=== PATIENT | male | born 1990 | race African-American/Black ===

== ENCOUNTER 2018-10-17 22:17 | Emergency (ER) | payer BC, OTHER ==
--- OUTSIDE RECORDS SUMMARY | 2018-10-17 22:19 | XMS REPORT | Clinical Summary ---
:1990 Author Organization [facility] Address [address] [place] [address] Care Team Providers Name Role Phone Alina Sahnnon MD Primary Care Provider Allergies No Known Allergies Medications Medication Sig Dispensed Refills Start Date End Date Status ibuprofen Take 800 mg 0 Active (ADVIL,MOTRIN) 800 MG by mouth tablet every 6 (six) hours as needed for mild pain. cyclobenzaprine Take 5 mg by 0 Active (FLEXERIL) 5 mg mouth 3 tablet (three) times a day as needed for muscle spasms. meloxicam (MOBIC) 15 TAKE 1 30 tablet 0 05/03/2018 Active mg tablet TABLET BY MOUTH EVERY DAY methocarbamol Take 1 90 tablet 0 04/06/2018 05/06/2018 (ROBAXIN) 750 MG tablet (750 tablet mg total) by mouth 4 (four) times a day for 30 days. meloxicam (MOBIC) 15 Take 1 30 tablet 0 04/06/2018 05/03/2018 Discontinued mg tablet tablet (15 mg total) by mouth daily. TENS unit and 1 Units once 1 each 0 04/25/2018 04/25/2018 electrodes combo for 1 dose. packIndications: Acute bilateral low back pain without sciatica Active Problems No known active problems Encounters Date Type Specialty Care Team Description 05/03/2018 Refill Internal Medicine Alina Shannon MD 04/25/2018 Office Visit Internal Medicine Alina Shannon Acute bilateral low MD [place] back pain without sciatica (Primary Dx) 04/06/2018 Lab Lab Alina Shannon Acute bilateral back MD [place] pain, unspecified back location 04/06/2018 Office Visit Internal Medicine Alina Shannon Acute bilateral back MD [place] pain, unspecified back location (Primary Dx) 04/05/2018 Telephone Family Medicine Elias Amaro LVN after 10/16/2017 Family History Medical History Relation Name Comments No Known Problems Father Cancer Maternal Aunt Hypertension Maternal Grandfather Diabetes Maternal Grandmother Hypertension Maternal Grandmother No Known Problems Mother doesn't talk to his parents much Cancer Paternal Uncle uncertain of types of cancer Stroke Paternal Uncle Relation Name Status Comments Father Alive Maternal Aunt Maternal Grandfather Maternal Grandmother Mother Alive Paternal Uncle Paternal Uncle Social History Tobacco Use Types Packs/Day Years Used Date Current Some Day Smoker Cigars 8 Smokeless Tobacco: Never Used Tobacco Cessation: Ready to Quit: No; Counseling Given: No Comments: 1-2 cigars/week Alcohol Use Drinks/Week oz/Week Comments No Sex Assigned at Date Recorded Not on file Job Start Date Occupation Industry Not on file Not on file Not on file Travel History Travel Start Travel End No recent travel history available. Last Filed Vital Signs Vital Sign Reading Time Taken Blood Pressure 129/82 04/25/2018 9:34 AM CDT Pulse 58 04/25/2018 9:34 AM CDT Temperature 36.6 C (97.9 F) 04/25/2018 9:34 AM CDT Respiratory Rate - - Oxygen Saturation 99% 04/25/2018 9:34 AM CDT Inhaled Oxygen Concentration - - Weight 89.4 kg (197 lb) 04/25/2018 9:34 AM CDT Height 185.4 cm (6' 1") 04/25/2018 9:34 AM CDT Body Mass Index 25.99 04/25/2018 9:34 AM CDT Plan of Treatment Health Maintenance Due Date Last Done Comments INFLUENZA VACCINE 03/29/2018 Procedures Procedure Name Priority Date/Time Associated Comments Diagnosis CBC WITH PLATELET AND Routine 04/06/2018 1:00 Acute bilateral Results for this DIFFERENTIAL PM CDT back pain, procedure are in unspecified back the results location section. COMPREHENSIVE Routine 04/06/2018 1:00 Acute bilateral Results for this METABOLIC PANEL PM CDT back pain, procedure are in unspecified back the results location section. after 10/16/2017 Results CBC with platelet and differential (04/06/2018 1:00 PM CDT) WBC 5.1 3.8 - 10.8 Thousand/uL [facility] [place] RBC 4.41 4.20 - 5.80 Million/uL [facility] [place] HGB 13.7 13.2 - 17.1 g/dL [facility] [place] HCT 41.0 38.5 - 50.0 % [facility] MCV 93.0 80.0 - 100.0 fL [facility] [place] MCH 31.1 27.0 - 33.0 pg [facility] [place] MCHC 33.4 32.0 - 36.0 g/dL [facility] [place] RDW 11.8 11.0 - 15.0 % [facility] [place] Platelet count 258 140 - 400 Thousand/uL [facility] [place] MPV 10.9 7.5 - 12.5 fL [facility] [place] Neutrophils, absolute 2,739 1,500 - 7,800 cells/uL [facility] [place] Lymphocytes, absolute 1,505 850 - 3,900 cells/uL [facility] [place] Monocytes, absolute 643 200 - 950 cells/uL [facility] [place] Eosinophils, absolute 153 15 - 500 cells/uL [facility] [place] Basophils, absolute 61 0 - 200 cells/uL [facility] [place] Neutrophils 53.7 % [facility] [place] Lymphocytes 29.5 % [facility] [place] Monocytes 12.6 % [facility] [place] Eosinophils 3.0 % [facility] [place] Basophils + RC 1.2 % [facility] [place] Specimen Blood Narrative Performed At FASTING: UNKNOWN [facility] Comment Performing Organization Information: Site ID: [id number] Name: [facility] Address: [address] [place] [id number] Director: Dionna Humphrey Performing Organization Address City/State/Zipcode Phone Number [employer] [place] [phone] Comprehensive metabolic panel (04/06/2018 1:00 PM CDT) Glucose 80 65 - 99 mg/dL [facility] Comment: [place] Fasting reference interval BUN, whole blood 13 7 - 25 mg/dL [facility] [place] Creatinine 1.02 0.60 - 1.35 mg/dL [facility] [place] EGFR Non-Afr. Egyptian 100 > OR=60 [facility] mL/min/1.73m2 [place] EGFR 115 > OR=60 [facility] mL/min/1.73m2 [place] BUN/creatinine ratio NOT APPLICABLE 6 - 22 (calc) [facility] [place] Sodium 140 135 - 146 mmol/L [facility] [place] Potassium 4.2 3.5 - 5.3 mmol/L [facility] [place] Chloride 104 98 - 110 mmol/L [facility] [place] CO2 31 20 - 32 mmol/L [facility] [place] Calcium 9.5 8.6 - 10.3 mg/dL [facility] [place] Protein 6.9 6.1 - 8.1 g/dL [facility] [place] Albumin, S 4.5 3.6 - 5.1 g/dL [facility] [place] Globulin, total 2.4 1.9 - 3.7 g/dL [facility] (calc) [place] Albumin/globulin ratio 1.9 1.0 - 2.5 (calc) [facility] [place] Total bilirubin 1.5 (H) 0.2 - 1.2 mg/dL [facility] [place] Alkaline phosphatase 59 40 - 115 U/L [facility] [place] AST 14 10 - 40 U/L [facility] [place] ALT 9 9 - 46 U/L [facility] [place] Specimen Blood Narrative Performed At FASTING: UNKNOWN [facility] Comment Performing Organization Information: Site ID: [id number] Name: [facility] Address: [address] [place] [id number] Director: Dionna Humphrey Performing Organization Address [facility] Phone Number [facility] [place] [address] [place], [place] [phone] after 10/16/2017 Insurance Payer Benefit Plan / Group Subscriber ID Type Phone Address BCBS BCBS CHOICE PPO/FEDERAL EMPL PPO xxxxxxxxxxxx PPO [facility] [address] (Home) [address] [place] [phone] Advance Directives Patient has advance care planning documents on file. For more information, please contact:[place] [address]
--- OUTSIDE RECORDS SUMMARY | 2018-10-17 22:19 | XMS REPORT ---
:1990 Author Organization [facility] Address [address] [place] [address] [address] [place] [address] Care Team Providers Name Role Phone Unavailable Unavailable Unavailable Problems This patient has no known problems. Allergies, Adverse Reactions, Alerts This patient has no known allergies or adverse reactions. Medications This patient has no known medications.
--- NOTE | 2018-10-17 23:34 | ER ---
Nurse's Notes [facility] Name: Alina Noyola Age: 27 yrs Sex: Male : 1990 Arrival Date: 10/17/2018 Time: 22:18 Bed 13 Private MD: Diagnosis: Radiculopathy, lumbar region;Low back pain Presentation: 10/17 22:33 Presenting complaint: Patient states: Was cleaning the pull and felt my back started ao hurting. Patient reports pain 6/10 in lower back. Transition of care: patient was not received from another setting of care. Onset of symptoms was October 17, 2018 at 12:00. Risk Assessment: Do you want to hurt yourself or someone else? Patient reports no desire to harm self or others. Initial Sepsis Screen: Does the patient meet any 2 criteria? No. Patient's initial sepsis screen is negative. Does the patient have a suspected source of infection? No. Patient's initial sepsis screen is negative. Care prior to arrival: None. 22:33 Method Of Arrival: Ambulatory ao 22:33 Acuity: KEKE 3 ao Historical: - Allergies: 22:35 No Known Allergies; ao - Home Meds: 22:35 unknown antibiotic [Active]; ao - PMHx: 22:35 ear infection; ao - PSHx: 22:35 None; ao - Immunization history:: Adult Immunizations up to date. - Social history:: Smoking status: Patient uses tobacco products, denies chronic smoking, but will smoke occasionally, Patient uses alcohol, occasionally. Patient/guardian denies using. - Ebola Screening: : Patient negative for fever greater than or equal to 101.5 degrees Fahrenheit, and additional compatible Ebola Virus Disease symptoms Patient denies exposure to infectious person Patient denies travel to an Ebola-affected area in the 21 days before illness onset. Screenin:37 Abuse screen: Denies threats or abuse. Denies injuries from another. Nutritional ao screening: No deficits noted. Tuberculosis screening: No symptoms or risk factors identified. Fall Risk None identified. Assessment: 22:37 General: Appears in no apparent distress. comfortable, Behavior is calm, cooperative, ao appropriate for age. Pain: Complains of pain in low back area Pain does not radiate. Pain currently is 6 out of 10 on a pain scale. Neuro: Level of Consciousness is awake, alert, obeys commands, Oriented to person, place, time, situation, Appropriate for age Moves all extremities. Full function Speech is normal, Facial symmetry appears normal. Cardiovascular: Capillary refill < 3 seconds Patient's skin is warm and dry. Respiratory: Airway is patent Respiratory effort is even, unlabored, Respiratory pattern is regular, symmetrical, Breath sounds are clear bilaterally. GI: Abdomen is flat. : No signs and/or symptoms were reported regarding the genitourinary system. EENT: No deficits noted. No signs and/or symptoms were reported regarding the EENT system. Derm: Skin is intact, Skin is pink, warm \T\ dry. normal, Skin temperature is warm. Musculoskeletal: Reports pain in low back area. 23:31 Reassessment: Patient appears in no apparent distress at this time. Patient and/or ao family updated on plan of care and expected duration. Pain level reassessed. Patient is alert, oriented x 3, equal unlabored respirations, skin warm/dry/pink. Flexeril and Toradol gievn. 23:40 Reassessment: DC held until flu results. ao 10/18 00:39 Reassessment: Dc given to patient. Patient agree with POC and to follow up with PCP. No ao questions at this time. Vital Signs: 10/17 22:36 BP 122 / 84; Pulse 62; Resp 16; Temp 100.0(O); Pulse Ox 96% on R/A; Weight 88.45 kg ao (M); Height 5 ft. 1 in. (154.94 cm) (M); Pain 6/10; 23:31 BP 120 / 81; Pulse 60; Resp 16; Pulse Ox 99% on R/A; ao 22:36 Body Mass Index 36.84 (88.45 kg, 154.94 cm) ao ED Course: 22:18 Patient arrived in ED. es 22:32 Prem Kim, RN is Primary Nurse. ao 22:34 Triage completed. ao 22:37 Arm band placed on right wrist. Patient placed in an exam room, on a stretcher, on ao pulse oximetry, Patient notified of wait time. 22:37 Patient has correct armband on for positive identification. Pulse ox on. NIBP on. ao 22:57 Sandy Goodson FNP-C is PHCP. snw 22:57 Vincenzo Dailey MD is Attending Physician. snw 10/18 00:15 Flu Sent. ao 00:40 No provider procedures requiring assistance completed. Patient did not have IV access ao during this emergency room visit. Administered Medications: 10/17 23:29 Drug: TORadol 60 mg Route: IM; Site: right gluteus; ao 23:53 Follow up: Response: No adverse reaction ao 23:29 Drug: Flexeril 10 mg Route: PO; ao 23:53 Follow up: Response: No adverse reaction ao Outcome: 23:33 Discharge ordered by . snw 10/18 00:40 Discharged to home ambulatory. ao Condition: stable Discharge instructions given to patient, Instructed on discharge instructions, follow up and referral plans. Demonstrated understanding of instructions, follow-up care, medications, Prescriptions given X 2. 00:40 Patient left the ED. ao Signatures: Sandy Goodson, SOLDER LEVELER PR[employer]ED CIRCUIT BOARDS-C SOLDER LEVELER [employer] BOARDS-Csnw Alva Lynne Alex, RN RN ao Corrections: (The following items were deleted from the chart) 00:39 00:38 Reassessment: DC held until flu results ao ao
--- NOTE | 2018-10-17 23:34 | EDPHYS ---
Physician Documentation [facility] Name: Alina Noyola Age: 27 yrs Sex: Male : 1990 Arrival Date: 10/17/2018 Time: 22:18 Bed 13 Private MD: ED Physician Vincenzo Dailey HPI: 10/18 00:09 This 27 yrs old Black Male presents to ER via Ambulatory with complaints of Low Back snw Pain. 00:09 The patient presents with pain that is acute. The symptoms are located in the left low snw back. Location: left lateral hip. The problem was sustained when lifting heavy object. Onset: The symptoms/episode began/occurred suddenly, this morning. Associated signs and symptoms: The patient has no apparent associated signs or symptoms. Severity of symptoms: At their worst the symptoms were moderate. The patient has not experienced similar symptoms in the past. It is unknown whether or not the patient has recently seen a physician. Historical: - Allergies: 10/17 22:35 No Known Allergies; ao - Home Meds: 22:35 unknown antibiotic [Active]; ao - PMHx: 22:35 ear infection; ao - PSHx: 22:35 None; ao - Immunization history:: Adult Immunizations up to date. - Social history:: Smoking status: Patient uses tobacco products, denies chronic smoking, but will smoke occasionally, Patient uses alcohol, occasionally. Patient/guardian denies using. - Ebola Screening: : Patient negative for fever greater than or equal to 101.5 degrees Fahrenheit, and additional compatible Ebola Virus Disease symptoms Patient denies exposure to infectious person Patient denies travel to an Ebola-affected area in the 21 days before illness onset. ROS: 10/18 00:07 Constitutional: Negative for fever, chills, and weight loss, Eyes: Negative for injury, snw pain, redness, and discharge, ENT: Negative for injury, pain, and discharge, Neck: Negative for injury, pain, and swelling, Cardiovascular: Negative for chest pain, palpitations, and edema, Respiratory: Negative for shortness of breath, cough, wheezing, and pleuritic chest pain, Abdomen/GI: Negative for abdominal pain, nausea, vomiting, diarrhea, and constipation, : Negative for injury, bleeding, discharge, and swelling, MS/Extremity: Negative for injury and deformity, Skin: Negative for injury, rash, and discoloration, Neuro: Negative for headache, weakness, numbness, tingling, and seizure. Back: Positive for injury or acute deformity, pain with movement, radiated pain. Exam: 00:07 Constitutional: This is a well developed, well nourished patient who is awake, alert, snw and in no acute distress. Head/Face: Normocephalic, atraumatic. Eyes: Pupils equal round and reactive to light, extra-ocular motions intact. Lids and lashes normal. Conjunctiva and sclera are non-icteric and not injected. Cornea within normal limits. Periorbital areas with no swelling, redness, or edema. ENT: Nares patent. No nasal discharge, no septal abnormalities noted. Tympanic membranes are normal and external auditory canals are clear. Oropharynx with no redness, swelling, or masses, exudates, or evidence of obstruction, uvula midline. Mucous membranes moist. Neck: Trachea midline, no thyromegaly or masses palpated, and no cervical lymphadenopathy. Supple, full range of motion without nuchal rigidity, or vertebral point tenderness. No Meningismus. Chest/axilla: Normal chest wall appearance and motion. Nontender with no deformity. No lesions are appreciated. Cardiovascular: Regular rate and rhythm with a normal S1 and S2. No gallops, murmurs, or rubs. Normal PMI, no JVD. No pulse deficits. Respiratory: Lungs have equal breath sounds bilaterally, clear to auscultation and percussion. No rales, rhonchi or wheezes noted. No increased work of breathing, no retractions or nasal flaring. Abdomen/GI: Soft, non-tender, with normal bowel sounds. No distension or tympany. No guarding or rebound. No evidence of tenderness throughout. Skin: Warm, dry with normal turgor. Normal color with no rashes, no lesions, and no evidence of cellulitis. MS/ Extremity: Pulses equal, no cyanosis. Neurovascular intact. Full, normal range of motion. Neuro: Awake and alert, GCS 15, oriented to person, place, time, and situation. Cranial nerves II-XII grossly intact. Motor strength 5/5 in all extremities. Sensory grossly intact. Cerebellar exam normal. Normal gait. Psych: Awake, alert, with orientation to person, place and time. Behavior, mood, and affect are within normal limits. 00:07 Back: pain, that is moderate, of the left low back, radiates to left lateral hip. Vital Signs: 10/17 22:36 BP 122 / 84; Pulse 62; Resp 16; Temp 100.0(O); Pulse Ox 96% on R/A; Weight 88.45 kg ao (M); Height 5 ft. 1 in. (154.94 cm) (M); Pain 6/10; 23:31 BP 120 / 81; Pulse 60; Resp 16; Pulse Ox 99% on R/A; ao 22:36 Body Mass Index 36.84 (88.45 kg, 154.94 cm) ao MDM: 23:14 Patient medically screened. snw 10/18 00:09 Data reviewed: vital signs, nurses notes. Data interpreted: Pulse oximetry: on room air snw is 99 %. Interpretation: normal. Counseling: I had a detailed discussion with the patient and/or guardian regarding: the historical points, exam findings, and any diagnostic results supporting the discharge/admit diagnosis, the presence of at least one elevated blood pressure reading (>120/80) during this emergency department visit, the need for outpatient follow up, to return to the emergency department if symptoms worsen or persist or if there are any questions or concerns that arise at home. Special discussion: I have referred the patient to see his PCP for further evaluation of high blood pressure. Based on the history and exam findings, there is no indication for further emergent testing or inpatient evaluation. I discussed with the patient/guardian the need to see the primary care provider for further evaluation of the symptoms. 10/17 23:19 Order name: Flu; Complete Time: 00:33 snw Administered Medications: 10/17 23:29 Drug: TORadol 60 mg Route: IM; Site: right gluteus; ao 23:53 Follow up: Response: No adverse reaction ao 23:29 Drug: Flexeril 10 mg Route: PO; ao 23:53 Follow up: Response: No adverse reaction ao Disposition: 10/18 01:10 Co-signature as Attending Physician, Vincenzo Dailey MD. rn Disposition: 10/17/18 23:33 Discharged to Home. Impression: Radiculopathy, lumbar region, Low back pain. - Condition is Stable. - Discharge Instructions: Back Pain, Adult, Lumbosacral Radiculopathy, Musculoskeletal Pain, Back Injury Prevention, [id number]-pc-[id number], Back Exercises, Fusn-hk-[id number], Cryotherapy, Rehydration, Adult, Heat Therapy. - Prescriptions for Diclofenac Sodium 75 mg Oral Tablet Sustained Release - take 1 tablet by ORAL route 2 times per day; 30 tablet. orphenadrine citrate 100 mg Oral Tablet Sustained Release - take 1 tablet by ORAL route 2 times per day As needed; 20 tablet. - Work release form, Medication Reconciliation Form, Thank You Letter, Antibiotic Education, Prescription Opioid Use form. - Follow up: Private Physician; When: 2 - 3 days; Reason: Recheck today's complaints, Continuance of care, Re-evaluation by your physician. Follow up: Emergency Department; When: As needed; Reason: Worsening of condition. Signatures: Dispatcher [employer] EDMS Sandy Goodson, KEERTHI-C POLICY CHANGE CLERKS SUPERVISOR-Csnw Vincenzo Dailey MD MD rn Ortiz, Alex, RN RN ao Corrections: (The following items were deleted from the chart) 00:40 10/17 23:33 10/17/2018 23:33 Discharged to Home. Impression: Radiculopathy, lumbar ao region; Low back pain. Condition is Stable. Discharge Instructions: Back Pain, Adult, Lumbosacral Radiculopathy, Musculoskeletal Pain, Back Injury Prevention, Lgzp-[id number], Back Exercises, Sjcf-lx-[id number], Cryotherapy, Rehydration, Adult, Heat Therapy. Prescriptions for Diclofenac Sodium 75 mg Oral Tablet Sustained Release - take 1 tablet by ORAL route 2 times per day; 30 tablet, orphenadrine citrate 100 mg Oral Tablet Sustained Release - take 1 tablet by ORAL route 2 times per day As needed; 20 tablet. and Forms are Work release form, Medication Reconciliation Form, Thank You Letter, Antibiotic Education, Prescription Opioid Use. Follow up: Private Physician; When: 2 - 3 days; Reason: Recheck today's complaints, Continuance of care, Re-evaluation by your physician. Follow up: Emergency Department; When: As needed; Reason: Worsening of condition. snw
[2018-10-17] MEDS ORDERED: CYCLOBENZAPRINE 10 MG TAB ONE (23:35)
[2018-10-17] MEDS ORDERED: KETOROLAC 30 MG/ML INJ ONE (23:35)
== END 2018-10-18 00:40 | disposition home or self-care (01) ==
LOC: ER 22:17
DX: M54.16 Radiculopathy, lumbar region (principal)
CPT/HCPCS: 87804; 96372; 99284

== ENCOUNTER 2019-09-04 20:51 | Emergency (ER) | payer BC, OTHER ==
--- OUTSIDE RECORDS SUMMARY | 2019-09-04 20:53 | XMS REPORT ---
:1990 [facility] Address [address] [place] [address] [address] [place] [address] Care Team Providers Name Role Phone Unavailable Unavailable Unavailable Problems This patient has no known problems. Allergies, Adverse Reactions, Alerts This patient has no known allergies or adverse reactions. Medications This patient has no known medications.
--- NOTE | 2019-09-04 22:22 | ER ---
Nurse's Notes [facility] Name: Alina Noyola Age: 28 yrs Sex: Male : 1990 Arrival Date: 09/04/2019 Time: 20:53 Bed 28 Private MD: Diagnosis: Strain of muscle and tendon of front wall of thorax Presentation: 09/04 21:06 Presenting complaint: Patient states: Left sided chest pain that began this morning at work, works for [employer], reports the pain is worsened by moving, stretching and leaning forward, denies Dizziness, Weakness, no n/v/d/fever at this time. Transition of care: patient was not received from another setting of care. Onset of symptoms was September 04, 2019. Risk Assessment: Do you want to hurt yourself or someone else? Patient reports no desire to harm self or others. Initial Sepsis Screen: Does the patient meet any 2 criteria? No. Patient's initial sepsis screen is negative. Does the patient have a suspected source of infection? No. Patient's initial sepsis screen is negative. Care prior to arrival: None. 21:06 Method Of Arrival: Ambulatory 21:06 Acuity: KEKE 4 sg Historical: - Allergies: 20:58 No Known Allergies; sg - PMHx: 20:58 ear infection; sg - PSHx: 20:58 None; sg - Immunization history:: Adult Immunizations up to date. - Social history:: Smoking status: Patient/guardian denies using tobacco. - Ebola Screening: : No symptoms or risks identified at this time. Screenin:05 Abuse screen: Denies threats or abuse. Denies injuries from another. Nutritional rv screening: No deficits noted. Tuberculosis screening: No symptoms or risk factors identified. Fall Risk None identified. Assessment: 22:05 General: Appears in no apparent distress. Pain: Complains of pain in chest Pain does rv not radiate. Pain: Pain began suddenly. Neuro: Level of Consciousness is awake, alert, obeys commands, Oriented to person, place, time, situation. Cardiovascular: Rhythm is regular. Respiratory: Airway is patent. Vital Signs: 20:58 BP 135 / 64; Pulse 76; Resp 16; Temp 98.7; Pulse Ox 100% on R/A; Weight 93.44 kg; sg Height 6 ft. 1 in. (185.42 cm); Pain 6/10; 22:21 BP 132 / 60; Pulse 77; Resp 16; Temp 98.7; Pulse Ox 100% on R/A; Pain 3/10; sg 20:58 Body Mass Index 27.18 (93.44 kg, 185.42 cm) ED Course: 20:53 Patient arrived in ED. ag3 21:07 Triage completed. sg 21:07 EKG done, by ED staff, reviewed by Vincenzo Dailey MD. sg 21:18 Bernice Caro FNP-C is PHCP. kb 21:18 Vincenzo Dailey MD is Attending Physician. kb 21:38 Aj Millan, RN is Primary Nurse. rv 21:45 Chest Pa And Lat (2 Views) XRAY In Process Unspecified. EDMS 21:50 X-ray(s) taken. jp3 22:06 No provider procedures requiring assistance completed. Patient did not have IV access rv during this emergency room visit. Patient maintains SpO2 saturation greater than 95% on room air. 22:06 Arm band placed on right wrist. rv 22:06 Patient has correct armband on for positive identification. hall monitor on. Pulse rv ox on. NIBP on. Administered Medications: No medications were administered Outcome: 22:20 Discharged to home ambulatory, with family. sg 22:20 Condition: good 22:20 Discharge instructions given to patient, Instructed on discharge instructions, follow up and referral plans. medication usage, safety practices, Demonstrated understanding of instructions, follow-up care, medications, Prescriptions given X 2. 22:21 Discharge ordered by MD. kb 22:27 Patient left the ED. ar5 Signatures: Dispatcher [employer] EDAK Bernice Caro FNP-C FNP-Ckb Gay, Steven, RN RN Aj Millan, RN RN rv Nacho Barksdale jp3 Yasmin Brink ag3 Grace Peter ar5
--- NOTE | 2019-09-04 22:22 | EDPHYS ---
Physician Documentation [facility] Name: Alina Noyola Age: 28 yrs Sex: Male : 1990 Arrival Date: 09/04/2019 Time: 20:53 Bed 28 Private MD: ED Physician Vincenzo Dailey HPI: 09/04 22:18 This 28 yrs old Black Male presents to ER via Ambulatory with complaints of Chest Pain. kb 22:18 The patient or guardian reports chest pain that is located primarily in the anterior kb chest wall, left. The pain does not radiate. Associated signs and symptoms: The patient has no apparent associated signs or symptoms. The chest pain is described as aching. Duration: The patient or guardian reports a single episode, that is still ongoing. Modifying factors: The symptoms are alleviated by remaining still, the symptoms are aggravated by breathing, deep breath, movement, palpation of area. Severity of pain: At its worst the pain was moderate in the emergency department the pain is unchanged. The patient has not experienced similar symptoms in the past. The patient has not recently seen a physician. Pt reports he started having pain to left chest this morning while at work. Reports he does a lot of repetitive work, but didn't lift anything heavier than normal today. Reports pain with breathing, touching muscle, moving left arm and stretching. . Historical: - Allergies: 20:58 No Known Allergies; sg - PMHx: 20:58 ear infection; sg - PSHx: 20:58 None; sg - Immunization history:: Adult Immunizations up to date. - Social history:: Smoking status: Patient/guardian denies using tobacco. - Ebola Screening: : No symptoms or risks identified at this time. ROS: 22:17 Constitutional: Negative for fever, chills, and weight loss, ENT: Negative for injury, kb pain, and discharge, Neck: Negative for injury, pain, and swelling, Respiratory: Negative for shortness of breath, cough, wheezing, and pleuritic chest pain, Abdomen/GI: Negative for abdominal pain, nausea, vomiting, diarrhea, and constipation, Back: Negative for injury and pain, : Negative for injury, bleeding, discharge, and swelling, MS/Extremity: Negative for injury and deformity, Skin: Negative for injury, rash, and discoloration, Neuro: Negative for headache, weakness, numbness, tingling, and seizure. 22:17 Cardiovascular: Positive for chest pain, with movement, of the left breast and anterior aspect of left upper chest. Exam: 21:43 ECG was reviewed by the Attending Physician. kb 22:16 Constitutional: This is a well developed, well nourished patient who is awake, alert, kb and in no acute distress. Head/Face: Normocephalic, atraumatic. Neck: Trachea midline, no thyromegaly or masses palpated, and no cervical lymphadenopathy. Supple, full range of motion without nuchal rigidity, or vertebral point tenderness. No Meningismus. Cardiovascular: Regular rate and rhythm with a normal S1 and S2. No gallops, murmurs, or rubs. Normal PMI, no JVD. No pulse deficits. Respiratory: Lungs have equal breath sounds bilaterally, clear to auscultation and percussion. No rales, rhonchi or wheezes noted. No increased work of breathing, no retractions or nasal flaring. Abdomen/GI: Soft, non-tender, with normal bowel sounds. No distension or tympany. No guarding or rebound. No evidence of tenderness throughout. Back: No spinal tenderness. No costovertebral tenderness. Full range of motion. Skin: Warm, dry with normal turgor. Normal color with no rashes, no lesions, and no evidence of cellulitis. MS/ Extremity: Pulses equal, no cyanosis. Neurovascular intact. Full, normal range of motion. Neuro: Awake and alert, GCS 15, oriented to person, place, time, and situation. Cranial nerves II-XII grossly intact. Motor strength 5/5 in all extremities. Sensory grossly intact. Cerebellar exam normal. Normal gait. 22:16 Chest/axilla: Inspection: normal, Palpation: tenderness, that is moderate, of the anterior aspect of left upper chest and left breast, that totally reproduces the patient's complaints. Vital Signs: 20:58 BP 135 / 64; Pulse 76; Resp 16; Temp 98.7; Pulse Ox 100% on R/A; Weight 93.44 kg; sg Height 6 ft. 1 in. (185.42 cm); Pain 6/10; 22:21 BP 132 / 60; Pulse 77; Resp 16; Temp 98.7; Pulse Ox 100% on R/A; Pain 3/10; sg 20:58 Body Mass Index 27.18 (93.44 kg, 185.42 cm) sg MDM: 21:38 Patient medically screened. kb 21:44 Data reviewed: vital signs, nurses notes. Data interpreted: Pulse oximetry: on room air kb is 100 %. Interpretation: normal. 22:16 Counseling: I had a detailed discussion with the patient and/or guardian regarding: the kb historical points, exam findings, and any diagnostic results supporting the discharge/admit diagnosis, radiology results, the need for outpatient follow up, a family practitioner, to return to the emergency department if symptoms worsen or persist or if there are any questions or concerns that arise at home. 09/04 21:18 Order name: Chest Pa And Lat (2 Views) XRAY kb 09/04 21:18 Order name: EKG; Complete Time: 21:18 kb 09/04 21:18 Order name: EKG - Nurse/Tech; Complete Time: 21:39 kb EC:43 Rate is 69 beats/min. Rhythm is regular. Right axis deviation noted. MS interval is kb normal at 182 msec. QRS interval is normal at 102 msec. QT interval is normal at 372 msec. Administered Medications: No medications were administered Disposition: 09/05 00:13 Co-signature as Attending Physician, Vincenzo Dailey MD. rn Disposition: 09/04/19 22:21 Discharged to Home. Impression: Strain of muscle and tendon of front wall of thorax. - Condition is Stable. - Discharge Instructions: Chest Wall Pain, [id number]-hk-[id number], Muscle Strain, [id number]. - Prescriptions for Diclofenac Sodium 75 mg Oral Tablet, Delayed Release (E.C.) - take 1 tablet by ORAL route 2 times per day As needed; 30 tablet. orphenadrine citrate 100 mg Oral Tablet Sustained Release - take 1 tablet by ORAL route 2 times per day As needed; 20 tablet. - Medication Reconciliation Form, Thank You Letter, Antibiotic Education, Prescription Opioid Use, Work release form form. - Follow up: Emergency Department; When: As needed; Reason: Worsening of condition. Follow up: Private Physician; When: 2 - 3 days; Reason: Recheck today's complaints, Continuance of care, Re-evaluation by your physician. Signatures: Dispatcher [employer] Bernice Au, ROTARY KILN OPERATOR-C ROTARY KILN OPERATOR-Ckb Esteves, EDWARD Burgos RN, Roman, MD MD rn Vicente, Ronaldo, RN RN rv Robles, Autumn ar5 Corrections: (The following items were deleted from the chart) 09/04 22:27 22:21 09/04/2019 22:21 Discharged to Home. Impression: Strain of muscle and tendon of ar5 front wall of thorax. Condition is Stable. Forms are Medication Reconciliation Form, Thank You Letter, Antibiotic Education, Prescription Opioid Use. Follow up: Emergency Department; When: As needed; Reason: Worsening of condition. Follow up: Private Physician; When: 2 - 3 days; Reason: Recheck today's complaints, Continuance of care, Re-evaluation by your physician. kb
[2019-09-04 22:42] VITALS: BP 135/64; TEMP 98.7; O2SAT 100
--- NOTE | 2019-09-04 22:53 | RAD REPORT ---
EXAM DESCRIPTION: RAD - Chest Pa And Lat (2 Views) - 09/04/2019 9:49 pm CLINICAL HISTORY: CHEST PAIN Chest pain. COMPARISON: CHEST PA AND LAT 2 VIEW dated 10/21/2015 FINDINGS: The lungs are clear. The heart is normal in size. No displaced fractures. IMPRESSION: No acute or concerning finding suspected.
--- NOTE | 2019-09-05 14:40 | EKG ---
Test Date: 2019-09-04 Test Time: 21:06:42 Finish Rolls Operator: SWG MEASUREMENT RESULTS: Intervals: Rate: 69 MD: 182 QRSD: 102 QT: 372 QTc: 398 [place]: P: 56 MD: 182 QRS: 90 T: 21 INTERPRETIVE STATEMENTS: Normal sinus rhythm Rightward axis Borderline ECG Compared to ECG 10/21/2015 19:06:04 Right-axis deviation now present Sinus bradycardia no longer present First degree AV block no longer present Electronically Signed On 09-05-19 14:38:40 USER EXPERIENCE TEAM LEAD by Roger Bardales
== END 2019-09-04 22:27 | disposition home or self-care (01) ==
LOC: ER 20:51
DX: S29.011A Strain of muscle and tendon of front wall of thorax, initial encounter (principal); X58.XXXA Exposure to other specified factors, initial encounter; Y99.0 Civilian activity done for income or pay
CPT/HCPCS: 71046; 93005; 99285

== ENCOUNTER 2021-02-20 22:11 | Emergency (ER) | payer BC ==
--- OUTSIDE RECORDS SUMMARY | 2021-02-20 22:14 | XMS REPORT | Continuity of Care Document ---
:1990 Author Organization Formerly [facility] t Address [address] [place] [address] Care Team Providers Name Role Phone Mirtha AVILA, Everett Primary Care Physician Orlin RN, M Attending Clinician Unavailable Only, Test Attending Clinician Unavailable Problems This patient has no known problems. Allergies, Adverse Reactions, Alerts This patient has no known allergies or adverse reactions. Family History Family Member Diagnosis Comments Start Date Stop Date Source Natural father No Known Problems [place] Maternal aunt Cancer [facility] Maternal grandfather Hypertension [place] [facility] Maternal grandmother Diabetes [place] [facility] Maternal grandmother Hypertension [place] [facility] Natural mother No Known Problems Nico Darling Paternal uncle Cancer [facility] Paternal uncle Stroke [facility] Social History Social Habit Start Date Stop Date Quantity Comments Source History of Cigar Smoker [facility] tobacco use Tobacco use and 2018-04-25 2018-04-25 Never used [facility] exposure 00:00:00 00:00:00 Alcohol intake 2018-04-25 2018-04-25 Current [facility] 00:00:00 00:00:00 non-drinker of alcohol (finding) Tobacco Comment 2016-06-11 2016-06-11 1-2 cigars/week [place] 00:00:00 00:00:00 Sex [birth year] At [birth year] [place] 00:00:00 00:00:00 Smoking Status Start Date Stop Date Source Current some day smoker 2018-04-25 00:00:00 [place] [facility] Medications Ordered Filled Start Stop Current Ordering Indication Dosage Frequency Signature Comments Components Source Medication Medication Date Date Medication? Clinician (SIG) Name Name meloxicam Yes TAKE 1 [place] (MOBIC) 15 9-05 TABLET BY [facility] mg tablet 00:00: MOUTH st 00 EVERY DAY ibuprofen Yes 800mg Q6H Take 800 [place] st[place] (ADVIL,MOTR 8-28 mg by Method[facility] IN) 800 MG 09:34: mouth st tablet 45 every 6 (six) hours as needed for mild pain. cyclobenzap Yes 5mg [id number] Take 5 mg Del rine 8-28 [id number] by mouth 3 [facility] (FLEXERIL) 09:34: 3D (three) st 5 mg tablet 45 times a day as needed for muscle spasms. Procedures This patient has no known procedures. Plan of Care Planned Activity Planned Date Details Comments Source Future Scheduled 2021-03-29 INFLUENZA VACCINE [place] [facility] Test 00:00:00 [code = INFLUENZA VACCINE] Future Scheduled 2007-11-08 Hepatitis C [facility] Test 00:00:00 screening (procedure) [code = 051473501] Future Scheduled 2001 COVID-19 VACCINE (1) [place] [facility] Test 00:00:00 [code = COVID-19 VACCINE (1)] Encounters Start End Encounter Admission Attending Care Care Encounter Source Date/Time Date/Time Type Type Clinicians Facility Department ID 2020-07-20 2020-07-20 Telephone OrlinAJ [id number] 00:00:00 00:00:00 [facility] [id number] [facility] [id number] 2020-07-17 2020-07-17 Laboratory Only, Web [facility] [id number] 10:05:15 10:20:15 Only Test Health [id number] Specialty [id number] [place] [id number] [place] [address] Results This patient has no known results.
--- NOTE | 2021-02-21 00:26 | EDPHYS ---
Physician Documentation [facility] Name: Alina Noyola Age: 30 yrs Sex: Male : 1990 Arrival Date: 02/20/2021 Time: 22:15 Bed 25 Private MD: ED Physician Michael Muir HPI: 02/21 00:04 This 30 yrs old Black Male presents to ER via Ambulatory with complaints of Low Back jmm Pain. 00:04 The patient presents with pain that is acute. Onset: The symptoms/episode jmm began/occurred acutely. Modifying factors: The patient symptoms are alleviated by specific position, the patient symptoms are aggravated by any movement. Associated signs and symptoms: Pertinent negatives: abdominal pain, chest pain, constipation, dysuria, fever, hematuria, incontinence, nausea, numbness, tingling, urinary retention, vomiting, weakness. 00:05 This is a 30 year old male with no chronic medical conditions that presents to the ED jmm with complaints of lower back pain beginning yesterday while performing heavy lifting. Pain worsened last night. . Historical: - Allergies: 02/20 22:47 No Known Allergies; ca1 - Home Meds: 22:47 None [Active]; ca1 - PMHx: 22:47 ear infection; ca1 - PSHx: 22:47 wrist surgery; ca1 - Immunization history:: Client reports having NOT received the Covid vaccine. Flu vaccine is not up to date. - Social history:: Smoking status: Patient reports the use of cigarette tobacco products, denies chronic smoking, but will smoke occasionally. ROS: 02/21 00:05 Constitutional: Negative for fever, chills, and weight loss, Cardiovascular: Negative jmm for chest pain, palpitations, and edema, Respiratory: Negative for shortness of breath, cough, wheezing, and pleuritic chest pain. Back: Positive for pain with movement. All other systems are negative. Exam: 00:05 Constitutional: This is a well developed, well nourished patient who is awake, alert, jmm and in no acute distress. Head/Face: atraumatic. Eyes: EOMI, no conjunctival erythema appreciated ENT: Moist Mucus Membranes Neck: Trachea midline, Supple Chest/axilla: Normal chest wall appearance and motion. Cardiovascular: Regular rate and rhythm. No edema appreciated Respiratory: Normal respirations, no respiratory distress appreciated Abdomen/GI: Non distended, soft 00:05 Skin: General appearance color normal MS/ Extremity: Moves all extremities, no obvious deformities appreciated, no edema noted to the lower extremities Neuro: Awake and alert, normal gait Psych: Behavior is normal, Mood is normal, Patient is cooperative and pleasant 00:05 Back: ROM is painful, muscle spasm, is appreciated in the left low back. Vital Signs: 02/20 22:42 BP 148 / 84; Pulse 55; Resp 17 S; Temp 97.6; Pulse Ox 97% on R/A; Weight 95.25 kg (R); ca1 Height 6 ft. 1 in. (185.42 cm) (R); Pain 8/10; 22:42 Body Mass Index 27.71 (95.25 kg, 185.42 cm) ca1 MDM: 02/21 00:04 Patient medically screened. [facility] 00:25 Data reviewed: vital signs, nurses notes. Counseling: I had a detailed discussion with kezia the patient and/or guardian regarding: the historical points, exam findings, and any diagnostic results supporting the discharge/admit diagnosis, radiology results, the need for outpatient follow up, to return to the emergency department if symptoms worsen or persist or if there are any questions or concerns that arise at home. ED course: Patient si alert and non toxic in appearance in the ED. PE consistent with muscle spasm. Advised to follow up with pcp and otherwise given strict return precautions. patient understood and agrees with the plan of care. . Administered Medications: 00:30 Drug: Ketorolac 30 mg Route: IM; Site: left deltoid; em 01:01 Follow up: Response: No adverse reaction; Marked relief of symptoms; Pain is decreased em 00:30 Drug: Decadron (dexamethasone) 10 mg Route: IM; Site: right deltoid; em 01:01 Follow up: Response: No adverse reaction; Marked relief of symptoms; Pain is decreased em Disposition: 06:42 Co-signature as Attending Physician, Michael Muir MD. [email or web address] Disposition: 02/21/21 00:26 Discharged to Home. Impression: Muscle spasm of back. - Condition is Stable. - Discharge Instructions: Muscle Cramps and Spasms. - Prescriptions for Ibuprofen 800 mg Oral Tablet - take 1 tablet by ORAL route every 12 hours As needed take with food; 20 tablet. Zanaflex 4 mg Oral Tablet - take 1 tablet by ORAL route every 8 hours As needed; 20 tablet. - Medication Reconciliation Form, Thank You Letter, Antibiotic Education, Prescription Opioid Use form. - Follow up: Private Physician; When: 2 - 3 days; Reason: Recheck today's complaints, Continuance of care, Re-evaluation by your physician. Signatures: Marino Roe PA PA jmm Munoz, Edgar, RN RN Katarzyna Tellez RN RN [facility] Michael Muir MD MD 7 Corrections: (The following items were deleted from the chart) 01:01 00:26 02/21/2021 00:26 Discharged to Home. Impression: Muscle spasm of back. Condition em is Stable. Forms are Medication Reconciliation Form, Thank You Letter, Antibiotic Education, Prescription Opioid Use. Follow up: Private Physician; When: 2 - 3 days; Reason: Recheck today's complaints, Continuance of care, Re-evaluation by your physician. kezia
--- NOTE | 2021-02-21 00:26 | ER ---
Nurse's Notes [facility] [place] Name: Alina Noyola Age: 30 yrs Sex: Male : 1990 Arrival Date: 02/20/2021 Time: 22:15 Bed 25 Private MD: Diagnosis: Muscle spasm of back Presentation: 02/20 22:42 Chief complaint: Patient states: Low back pain since yesterday. Denies recent injury. ca1 Denies urinary symptoms. Reports been lifting heavy at work. Coronavirus screen: Client denies travel out of the [place] in the last 14 days. At this time, the client does not indicate any symptoms associated with coronavirus-19. Ebola Screen: Patient negative for fever greater than or equal to 101.5 degrees Fahrenheit, and additional compatible Ebola Virus Disease symptoms Patient denies exposure to infectious person. Patient denies travel to an Ebola-affected area in the 21 days before illness onset. No symptoms or risks identified at this time. Initial Sepsis Screen: Does the patient meet any 2 criteria? No. Patient's initial sepsis screen is negative. Does the patient have a suspected source of infection? No. Patient's initial sepsis screen is negative. Risk Assessment: Do you want to hurt yourself or someone else? Patient reports no desire to harm self or others. Onset of symptoms was February 20, 2021. 22:42 Method Of Arrival: Ambulatory ca1 22:42 Acuity: KEKE 4 ca1 Historical: - Allergies: 22:47 No Known Allergies; ca1 - Home Meds: 22:47 None [Active]; ca1 - PMHx: 22:47 ear infection; ca1 - PSHx: 22:47 wrist surgery; ca1 - Immunization history:: Client reports having NOT received the Covid vaccine. Flu vaccine is not up to date. - Social history:: Smoking status: Patient reports the use of cigarette tobacco products, denies chronic smoking, but will smoke occasionally. Screenin/26 00:30 Abuse screen: Denies threats or abuse. Nutritional screening: No deficits noted. em Tuberculosis screening: No symptoms or risk factors identified. Fall Risk None identified. Assessment: 00:30 General: Appears in no apparent distress. comfortable. Pain: Complains of pain in left em low back Pain does not radiate. Pain currently is 8 out of 10 on a pain scale. Neuro: Level of Consciousness is awake, alert, obeys commands, Oriented to person, place, time, situation. Cardiovascular: Capillary refill < 3 seconds Patient's skin is warm and dry. Respiratory: Airway is patent Respiratory effort is even, unlabored, Respiratory pattern is regular, symmetrical. GI: Patient currently denies nausea, vomiting. Derm: Skin is intact, is healthy with good turgor, Skin is pink, warm \T\ dry. Musculoskeletal: Capillary refill < 3 seconds, Range of motion: intact in all extremities. 00:55 Reassessment: Patient appears in no apparent distress at this time. Patient and/or em family updated on plan of care and expected duration. Pain level reassessed. Patient is alert, oriented x 3, equal unlabored respirations, skin warm/dry/pink. rates pain 4/10 Patient states feeling better. Vital Signs: 02/20 22:42 BP 148 / 84; Pulse 55; Resp 17 S; Temp 97.6; Pulse Ox 97% on R/A; Weight 95.25 kg (R); ca1 Height 6 ft. 1 in. (185.42 cm) (R); Pain 8/10; 22:42 Body Mass Index 27.71 (95.25 kg, 185.42 cm) ca1 ED Course: 22:15 Patient arrived in ED. bp1 22:46 Triage completed. ca1 22:47 Arm band placed on right wrist. ca1 23:49 Pacheco Jj, RN is Primary Nurse. em 23:50 Marino Roe PA is PHCP. [facility] 23:50 Michael Muir MD is Attending Physician. [facility] 02/21 00:30 Patient has correct armband on for positive identification. em 02:19 No provider procedures requiring assistance completed. Patient did not have IV access em during this emergency room visit. Administered Medications: 00:30 Drug: Ketorolac 30 mg Route: IM; Site: left deltoid; em 01:01 Follow up: Response: No adverse reaction; Marked relief of symptoms; Pain is decreased em 00:30 Drug: Decadron (dexamethasone) 10 mg Route: IM; Site: right deltoid; em 01:01 Follow up: Response: No adverse reaction; Marked relief of symptoms; Pain is decreased em Outcome: : Discharge ordered by . [facility] 01:00 Discharged to home ambulatory. em 01:00 Condition: improved 01:00 Discharge instructions given to patient, Instructed on discharge instructions, follow up and referral plans. medication usage, Demonstrated understanding of instructions, follow-up care, medications, Prescriptions given X 2. 01:01 Patient left the ED. em Signatures: Marino Roe PA PA jmm Munoz, Edgar, RN RN em Acob, Cheryl, RN RN [facility] Gina Crawley [facility]
[2021-02-21] MEDS ORDERED: KETOROLAC 30 MG/ML INJ ONE (00:41)
[2021-02-21] MEDS ORDERED: dexAMETHasone 10 MG/ML VIAL ONE (00:41)
[2021-02-21 01:24] VITALS: BP 148/84; TEMP 97.6; O2SAT 97
== END 2021-02-21 01:01 | disposition home or self-care (01) ==
LOC: ER 22:11
DX: M62.830 Muscle spasm of back (principal); F17.210 Nicotine dependence, cigarettes, uncomplicated
CPT/HCPCS: 96372; 99283; J1100

== ENCOUNTER 2022-05-15 22:13 | Emergency (ER) | payer BC ==
--- OUTSIDE RECORDS SUMMARY | 2022-05-15 22:16 | XMS REPORT | Continuity of Care Document ---
:1990 Author Organization [facility] t Address [address] [place] [address] Care Team Providers Name Role Phone Mirtha AVILA, Alina Floyd Primary Care Physician [phone] Amy Lam Attending Clinician Doctor Unassigned, Swartz Attending Clinician Unavailable Orlin LEON, Ijeoma Muro Attending Clinician Unavailable Only, Web Test Attending Clinician Unavailable Fernando Schmitz MD Attending Clinician Payers Payer Name Policy Type Policy Number Effective Date Expiration Date [employer] [id number] 2018 00:00:00 Problems Condition Condition Condition Status Onset Resolution Last Treating Co mments Source Name Details Category Date Date Treatment Clinician Date No known No known Disease Metho di active active st problems problems Hospit a l Allergies, Adverse Reactions, Alerts Allergy Allergy Status Severity Reaction(s) Onset Inactive Treating Comm ents Source Name Type Date Date Clinician NO KNOWN Drug Active Univers ALLERGIE Class ity of S [facility] Family History Family Member Diagnosis Comments Start Date Stop Date Source Natural father No Known Problems [facility] Maternal aunt Cancer [facility] Maternal grandfather Hypertension [facility] Maternal grandmother Diabetes Meth [facility] Maternal grandmother Hypertension [facility] Natural mother No Known Problems Met [facility] Paternal uncle Cancer [facility] Paternal uncle Stroke [facility] Social History Social Habit Start Date Stop Date Quantity Comments Source Exposure to Not sure University SARS-CoV-2 [facility] (event) Branch History of Occasional tobacco Method ist tobacco use smoker Hospital Alcohol intake 2018-04-25 2018-04-25 Current [facility] 00:00:00 00:00:00 non-drinker of Hospital alcohol (finding) Tobacco use and 2016-06-11 2016-06-11 [facility]00 non-user Hospital Tobacco Comment 2016-06-11 2016-06-11 1-2 cigars/week Meth odist 00:00:00 00:00:00 Hospital Sex Assigned At [birth year] [facility] 00:00:00 00:00:00 Hospital Smoking Status Start Date Stop Date Source Unknown if ever smoked [facility] Occasional tobacco smoker 2016-06-11 00:00:00 [facility] Medications Ordered Filled Start Stop Current Ordering Indication Dosage Frequency Signature Comments Components Source Medication Medication Date Date Medication? Clinician (SIG) Name Name HYDROcodone 2020- No 1{tbl} 1 tablet, Univers -acetaminop 02-26 Oral, ONCE i ty of hen (NORCO) 01:30: 00:47 NOW, 1 Luis as 10-325 mg 00 :00 dose, Wed Medic al tablet 1 02/25/21 at [facility] h tablet 2029, Routine dexamethaso 2020- No 10mg 10 mg, Uni vers ne 02-26 Intramuscu ity of (DECADRON 01:30: 00:46 lar, ONCE, [place] PHOSPHATE) 00 :00 1 dose, Medica l injection Wed Branch 10 mg 02/25/21 at 2030, STAT ketorolac 2020- No 60mg 60 mg, Unive rs (TORADOL) 02-26 Intramuscu ity of injection 01:30: 00:46 lar, ONCE, [place] 60 mg 00 :00 1 dose, Medical Wed Branch 02/25/21 at 2030, JOSE
Fa culty member approving Restricted medication : EMERGENCY ROOM, predniSONE 2020- No [id number] 40mg Take 2 Univers 20 mg 02-26 tablets by ity of tablet 00:00: 04:59 mouth [place] 00 :00 daily for Medical 5 days. Branch methocarbam Yes [id number] 750mg Take 1 Univers oL 750 mg 6-30 tablet by ity o f tablet 00:00: mouth 4 [place] 00 (four) Medical times Branch daily as needed for Other (muscle spasm). acetaminoph 2020- No [id number] 1{tbl} Take 1 U nivers en-codeine 6-30 - tablet by ity of 300-30 mg 00:00: 04:59 mouth [place] tablet 00 :00 every 6 Medical (six) Branch hours as needed for Pain (scale 7-10) for up to 7 days. Indication s: acute pain fluticasone 2018-08 Yes [id number] 2{spray Use 2 Univers propionate 0-01 } Sprays in ity of (FLONASE 00:00: each [place] ALLERGY 00 nostril Medical RELIEF) 50 daily. Branch mcg/actuati on nasal spray fluticasone 2018-08 Yes [id number] 2{spray Use 2 Univers propionate 0-01 } Sprays in ity of (FLONASE 00:00: each [place] ALLERGY 00 nostril Medical RELIEF) 50 daily. Branch mcg/actuati on nasal spray fluticasone 2018-08 Yes [id number] 2{spray Use 2 Univers propionate 0-01 } Sprays in ity of (FLONASE 00:00: each [place] ALLERGY 00 nostril Medical RELIEF) 50 daily. Branch mcg/actuati on nasal spray fluticasone 2018-08 Yes [id number] 2{spray Use 2 Univers propionate 0-01 } Sprays in ity of (FLONASE 00:00: each [place] ALLERGY 00 nostril Medical RELIEF) 50 daily. Branch mcg/actuati on nasal spray mupirocin 2017-08 Yes Apply to [facility] ers (BACTROBAN) 2-29 affected ity of 2 % cream 00:00: area(s) 3 Luis as 00 (three) Medical times Branch daily. traMADOL 2017-08 Yes 50mg Take 1 Univers (ULTRAM) 50 2-29 tablet by ity of mg tablet 00:00: mouth [place] 00 every 6 Medical (six) Branch hours as needed for Pain (scale 4-6). mupirocin 2017- Yes Apply to [facility] ers (BACTROBAN) 2 affected ity of 2 % cream 00:00: area(s) 3 Luis as 00 (three) Medical times Branch daily. traMADOL 2017- Yes 50mg Take 1 Univers (ULTRAM) 50 2-29 tablet by ity of mg tablet 00:00: mouth [place] 00 every 6 Medical (six) Branch hours as needed for Pain (scale 4-6). mupirocin 2017- Yes Apply to [facility] ers (BACTROBAN) 2 affected ity of 2 % cream 00:00: area(s) 3 Luis as 00 (three) Medical times Branch daily. traMADOL 2017- Yes 50mg Take 1 Univers (ULTRAM) 50 2-29 tablet by ity of mg tablet 00:00: mouth [place] 00 every 6 Medical (six) Branch hours as needed for Pain (scale 4-6). mupirocin 2017- Yes Apply to [facility] (BACTROBAN) affected ity of 2 % cream 00:00: area(s) 3 Luis as 00 (three) Medical times Branch daily. traMADOL 2017- Yes 50mg Take 1 Univers (ULTRAM) 50 2-29 tablet by ity of mg tablet 00:00: mouth [place] 00 every 6 Medical (six) Branch hours as needed for Pain (scale 4-6). meloxicam Yes TAKE 1 Method i (MOBIC) 15 9-[address] mg tablet 00:00: MOUTH Hospita 00 EVERY DAY l ibuprofen 2017- Yes 800mg Q6H Take 800 Met hodi (ADVIL,MOTR 8-[address] IN) 800 MG 09:34: mouth Hospit a tablet 45 every 6 l (six) hours as needed for mild pain. cyclobenzap 2017- Yes 5mg Q.[id number] Take 5 mg Methodi rine 8-[id number] mouth [address] (FLEXERIL) 09:34: 3D (three) Hosp ewelina 5 mg tablet 45 times a l day as needed for muscle spasms. erythromyci 2018- Yes .5[in_u Place 0.5 Univers n 5 mg/gram 4-14 s] Inches in ity of (0.5 %) 00:00: left eye [place] ophthalmic 00 at Medical ointment bedtime. Branch Dextran Yes 1[drp] Place 1 Unive rs 70-Hypromel 4-14 Drop in ity o f lose, PF, 00:00: [place] (NATURAL 00 every 4 Medical TEARS) (four) Branch 0.1-0.3 % hours as ophthalmic needed for drops Itching. erythromyci Yes .5[in_u Place 0.5 Univers n 5 mg/gram 4-14 s] Inches in ity of (0.5 %) 00:00: left eye [place] ophthalmic 00 at Medical ointment bedtime. Branch Dextran Yes 1[drp] Place 1 Unive rs 70-Hypromel 4-14 Drop in ity o f lose, PF, 00:00: [place] (NATURAL 00 every 4 Medical TEARS) (four) Branch 0.1-0.3 % hours as ophthalmic needed for drops Itching. erythromyci Yes .5[in_u Place 0.5 Univers n 5 mg/gram 4-14 s] Inches in ity of (0.5 %) 00:00: left eye [place] ophthalmic 00 at Medical ointment bedtime. Branch Dextran Yes 1[drp] Place 1 Unive rs 70-Hypromel 4-14 Drop in ity o f lose, PF, 00:00: each [place] (NATURAL 00 every 4 Medical TEARS) (four) Branch 0.1-0.3 % hours as ophthalmic needed for drops Itching. erythromyci Yes .5[in_u Place 0.5 Univers n 5 mg/gram 4-14 s] Inches in ity of (0.5 %) 00:00: left eye [place] ophthalmic 00 at Medical ointment bedtime. Branch Dextran Yes 1[drp] Place 1 Unive rs 70-Hypromel 4-14 Drop in ity o f lose, PF, 00:00: each [place] (NATURAL 00 every 4 Medical TEARS) (four) Branch 0.1-0.3 % hours as ophthalmic needed for drops Itching. Vital Signs Vital Name Observation Time Observation Value Comments Source Systolic blood 2021-02-26 02:16:40 123 mm[Hg] Univer sity of [facility] Diastolic blood 2021-02-26 02:16:40 75 mm[Hg] [facility] rsity [facility] Heart rate 2021-02-26 02:16:40 59 /min [facility] Respiratory rate 2021-02-26 02:16:40 17 /min [facility] Oxygen saturation in 2021-02-26 02:16:40 98 /min [facility] Arterial blood by [facility] Pulse oximetry Branch Body temperature 2021-02-25 23:32:33 36.94 Reina [facility] Body height 2021-02-25 23:30:00 185.4 cm [facility] Body weight 2021-02-25 23:30:00 97.523 kg [facility] BMI 2021-02-25 23:30:00 28.37 kg/m2 [facility] Procedures Procedure Date / Time Performed Performing Clinician Sour e URINALYSIS 2021-02-26 00:50:[address] [facility] XR LUMBAR SPINE 3 VW 2021-02-26 00:38:30 Amy Hillman [facility] NOTICE OF PRIVACY 2021-02-25 23:05:59 Doctor Unassigned, No Univ [facility] PRACTICES Name [facility] CONSENT/REFUSAL FOR 2021-02-25 23:05:39 Doctor Unassigned, [facility] AND Name [facility] TREATMENT Plan of Care Planned Activity Planned Date Details Comments Source Future Scheduled 2022-04-29 [facility] 07:10:34 VACCINES (1 of 3 - 3-dose series) [code = HEPATITIS B VACCINES (1 of 3 - 3-dose series)] Future Scheduled 2022-04-29 [facility] 07:10:34 (#1) [code = COVID-19 VACCINE (#1)] Future Scheduled 2022-04-29 INFLUENZA VACCINE Method [facility] Hospital Test 07:10:34 [code = INFLUENZA VACCINE] Encounters Start End Encounter Admission Attending Care Care Encounter Source Date/Time Date/Time Type Type Clinicians Facility Department ID 2021-02-25 2021-02-25 Emergency Hillman, [facility] [id number] Univers 19:12:00 21:20:00 Amy Bundy [id number] i ty of [place] [facility]7.2.686 [facility] [id number] [place] [id number] Branch 2021-02-25 2021-02-25 Emergency X [facility] ERT [id number] Univers 18:07:00 18:07:[address] [facility] 2021-02-25 2021-02-25 Orders Doctor AJ [id number] Univers 00:00:00 00:00:00 Only Unassigned, DAINA [id number] ity of [place] [facility] 4.2.7.2.686 Luis as [id number] [facility] 009 Branch 2020-07-20 2020-07-20 Telephone AJ Ordaz [id number] 00:00:00 00:00:00 Ijeoma M DAINA [id number] [facility] 4.2.7.2.686 [id number] [facility] 2020-07-20 2020-07-20 Telephone AJ Ordaz [id number] Univers 00:00:00 00:00:00 Ijeoma LAMA [id number] ity of [facility] 4.2.7.2.686 Luis as [id number] [facility] 019 Branch 2020-07-17 2020-07-17 Laboratory Only, Web [facility] [id number] 10:05:15 10:20:15 Only Test Health [id number] Specialty 4.2.7.2.686 Care - [id number] [place] [address] 2020-07-17 2020-07-17 Laboratory Only, Web Test [facility] 1.2.840. [id number] Univers 10:05:15 10:20:15 Only Fernando Schmitz Health [id number] ity of [place]2.[place] - [id number] [address] Results Test Description Test Time Test Comments Results Result Comments Source Urinalysis 2021-02-26 01:23:08 Test Item Value Reference Range Interpretation Comme nts APPEARANCE (test code = Clear Clear [id number]) COLOR (test code = 5290567467) Yellow Yellow PH (test code = 0171709518) 4.8-8.0 SP GRAVITY (test code = 1.003-1.030 0704321381) GLU U QUAL (test code = Normal Normal 8078922422) BLOOD (test code = 5649649978) 1+ Negative A KETONES (test code = 8000851122) Negative Negative PROTEIN (test code = 2887-8) Negative Negative UROBILIN (test code = 2.0 mg/dL Normal A 3272059666) BILIRUBIN (test code = Negative Negative 3673813299) NITRITE (test code = 2746860889) Negative Negative LEUK BIGG (test code = Negative Negative 3722964280) RBC/HPF (test code = 5124705820) See_Comment H [Automated message] The system which [employer] nerated this result transmit henna reference range: 0 - 3 HP F. The reference range was not used to interpret th is result as normal/abnormal . WBC/HPF (test code = 4770842772) <1 See_Comment [Automated message] The system which ge nerated this result transmit henna reference range: 0 - 5 HP F. The reference range was not used to interpret th is result as normal/abnormal . BACTERIA (test code = Negative Negative 9188794611) MUCOUS (test code = 3131912531) Slight Negative LPF A Lab Interpretation (test code = Abnormal 49179-9) [facility]
--- NOTE | 2022-05-16 00:32 | EDPHYS ---
Physician Documentation [facility] Name: Alina Noyola Age: 31 yrs Sex: Male : 1990 Arrival Date: 05/15/2022 Time: 22:16 Bed 12 Private MD: ED Physician Young Christiansen HPI: 05/15 00:15 This 31 yrs old Black Male presents to ER via Ambulatory with complaints of Ear Pain. cp 00:15 The patient presents with pain, that is acute. The complaints affect the left ear. cp Onset: The symptoms/episode began/occurred yesterday. Associated signs and symptoms: Pertinent positives: sore throat, cough, Pertinent negatives: fever, sinus trouble. Severity of symptoms: in the emergency department the symptoms are unchanged despite home interventions. Historical: - Allergies: 22:27 No Known Allergies; hb - Home Meds: 05/16 00:40 unknown antibiotic [Active]; tw5 - PMHx: 05/15 22:27 ear infection; hb - PSHx: 22:27 None; hb - Immunization history:: Adult Immunizations up to date. - Social history:: Smoking status: Patient reports the use of cigarette tobacco products, denies chronic smoking, but will smoke occasionally. ROS: 05/16 00:18 Constitutional: Negative for body aches, chills, fever, poor PO intake. cp 00:18 Eyes: Negative for injury, pain, redness, and discharge. cp 00:18 ENT: Positive for ear pain, sore throat, Negative for drainage from ear(s), difficulty swallowing, difficulty handling secretions. 00:18 Cardiovascular: Negative for chest pain, palpitations. 00:18 Respiratory: Positive for cough, with no reported sputum, Negative for shortness of breath, wheezing. 00:18 Abdomen/GI: Negative for abdominal pain, nausea, vomiting, and diarrhea. 00:18 Neuro: Negative for altered mental status, headache. 00:18 All other systems are negative. Exam: 05/15 00:20 Constitutional: The patient appears in no acute distress, alert, awake, comfortable, cp non-toxic, well developed, well nourished. 00:20 Head/Face: Normocephalic, atraumatic. cp 00:20 Eyes: Periorbital structures: appear normal, Conjunctiva: normal, no exudate, no injection, Sclera: no appreciated abnormality, Lids and lashes: appear normal, bilaterally. 00:20 ENT: External ear(s): are unremarkable, Ear canal(s): are normal, clear, TM's: bulging, is not appreciated, erythema, that is mild, on the left, Examination of the other ear shows no obvious abnormality, Nose: is normal, Mouth: Lips: moist, Oral mucosa: pink and intact, moist, Posterior pharynx: Airway: no evidence of obstruction, patent, Tonsils: with erythema, no enlargement, no exudate, swelling, is not appreciated, erythema, that is mild, exudate, is not appreciated. 00:20 Neck: ROM/movement: is normal, is supple, without pain, no range of motions limitations, no meningismus, Lymph nodes: no appreciated lymphadenopathy. 00:20 Chest/axilla: Inspection: normal. 00:20 Cardiovascular: Rate: bradycardic. 00:20 Respiratory: the patient does not display signs of respiratory distress, Respirations: normal, no use of accessory muscles, no retractions, labored breathing, is not present, Breath sounds: are clear throughout, no decreased breath sounds, no stridor, no wheezing. 00:20 Abdomen/GI: Exam negative for discomfort, distension, guarding, Inspection: abdomen appears normal. 00:20 Skin: no rash present. Vital Signs: 22:26 BP 126 / 80; Pulse 55; Resp 18; Temp 98.1(O); Pulse Ox 100% ; Weight 99.79 kg; Height 6 hb ft. 1 in. (185.42 cm); Pain 5/10; 22:26 Body Mass Index 29.03 (99.79 kg, 185.42 cm) hb MDM: 23:20 Patient medically screened. cp 05/16 00:20 Differential diagnosis: otitis media, otitis externa, ruptured TM, strep throat. cp 00:32 Data reviewed: vital signs, nurses notes. cp 00:32 Counseling: I had a detailed discussion with the patient and/or guardian regarding: the cp historical points, exam findings, and any diagnostic results supporting the discharge/admit diagnosis, to return to the emergency department if symptoms worsen or persist or if there are any questions or concerns that arise at home. Administered Medications: 00:40 Drug: Augmentin (Amoxicillin-Clavulanate) 875 mg Route: PO; tw 00:40 Follow up: Response: No adverse reaction; Adverse reaction, Physician notified tw5 Disposition Summary: 05/16/22 00:32 Discharge Ordered Location: Home cp Problem: new cp Symptoms: have improved cp Condition: Stable cp Diagnosis - Otitis media, unspecified, left ear cp Followup: cp - With: Private Physician - When: 2 - 3 days - Reason: Worsening of condition Discharge Instructions: - Discharge Summary Sheet cp - Otitis Media, Adult cp Forms: - Medication Reconciliation Form cp - Thank You Letter cp - Antibiotic Education cp - Prescription Opioid Use cp Prescriptions: - Amoxicillin 875 mg Oral Tablet - take 1 tablet by ORAL route every 12 hours for 10 days; 20 tablet; Refills: 0, cp Product Selection Permitted Signatures: Young Antony PA PA cp Baxter, Heather, EDWARD RN Alejandra Adams tw5
--- NOTE | 2022-05-16 00:32 | ER ---
Nurse's Notes [facility] Name: Alina Noyola Age: 31 yrs Sex: Male : 1990 Arrival Date: 05/15/2022 Time: 22:16 Bed 12 Private MD: Diagnosis: Otitis media, unspecified, left ear Presentation: 05/15 22:26 Chief complaint: Left ear pain x 2 days. Coronavirus screen: At this time, the client hb does not indicate any symptoms associated with coronavirus-19. Ebola Screen: No symptoms or risks identified at this time. Initial Sepsis Screen: Does the patient meet any 2 criteria? No. Patient's initial sepsis screen is negative. Does the patient have a suspected source of infection? No. Patient's initial sepsis screen is negative. Risk Assessment: Do you want to hurt yourself or someone else? Patient reports no desire to harm self or others. Onset of symptoms was May 14, 2022. 22:26 Method Of Arrival: Ambulatory hb 22:26 Acuity: KEKE 4 hb Triage Assessment: 22:27 General: Appears in no apparent distress. Behavior is calm, cooperative. Pain: Pain hb currently is 5 out of 10 on a pain scale. EENT: Reports pain since left ear. Historical: - Allergies: 22:27 No Known Allergies; hb - Home Meds: 05/16 00:40 unknown antibiotic [Active]; tw5 - PMHx: 05/15 22:27 ear infection; hb - PSHx: 22:27 None; hb - Immunization history:: Adult Immunizations up to date. - Social history:: Smoking status: Patient reports the use of cigarette tobacco products, denies chronic smoking, but will smoke occasionally. Screenin:30 Abuse screen: Denies threats or abuse. Denies injuries from another. Nutritional hb screening: No deficits noted. Tuberculosis screening: No symptoms or risk factors identified. Fall Risk None identified. Assessment: 23:30 General: SEE TRIAGE ASSESSMENT. hb Vital Signs: 22:26 BP 126 / 80; Pulse 55; Resp 18; Temp 98.1(O); Pulse Ox 100% ; Weight 99.79 kg; Height 6 hb ft. 1 in. (185.42 cm); Pain 5/10; 22:26 Body Mass Index 29.03 (99.79 kg, 185.42 cm) hb ED Course: 22:16 Patient arrived in ED. bp1 22:27 Triage completed. hb 22:27 Arm band placed on. hb 23:16 Young Antony PA is PHCP. cp 23:16 Young Christiansen MD is Attending Physician. cp 23:30 Patient has correct armband on for positive identification. 05/16 00:40 No provider procedures requiring assistance completed. Patient did not have IV access tw5 during this emergency room visit. Administered Medications: 00:40 Drug: Augmentin (Amoxicillin-Clavulanate) 875 mg Route: PO; tw5 00:40 Follow up: Response: No adverse reaction; Adverse reaction, Physician notified tw5 Medication: 00:40 VIS not applicable for this client. tw5 Outcome: 00:32 Discharge ordered by . cp 00:40 Discharged to home ambulatory. tw5 00:40 Condition: good 00:40 Discharge instructions given to patient, Instructed on discharge instructions, follow up and referral plans. Demonstrated understanding of instructions, Prescriptions given X 1. 00:41 Patient left the ED. tw5 Signatures: Young Antony PA PA cp Baxter, Heather, RN RN Gina Crawley Anderson Alejandra tw5
[2022-05-16] MEDS ORDERED: AMOX/K CLAV 875 MG TAB ONE (00:45)
[2022-05-17 13:32] VITALS: BP 126/80; TEMP 98.1; O2SAT 100
== END 2022-05-16 00:41 | disposition home or self-care (01) ==
LOC: ER 22:13
DX: H66.92 Otitis media, unspecified, left ear (principal); F17.210 Nicotine dependence, cigarettes, uncomplicated
CPT/HCPCS: 99283

== ENCOUNTER 2022-09-07 22:42 | Emergency (ER) | payer BC ==
--- OUTSIDE RECORDS SUMMARY | 2022-09-07 22:45 | XMS REPORT | Continuity of Care Document ---
:1990 Author Organization [facility] t Address [address] [place] [address] Care Team Providers Name Role Phone Alina Shannon MD Primary Care Physician [phone] Amy Lam Attending Clinician Doctor Unassigned, [place] Attending Clinician Unavailable Orlin LEON, Ijeoma Muro Attending Clinician Unavailable Only, Web Test Attending Clinician Unavailable Ainsley AVILA, Fernando Muro Attending Clinician Payers Payer Name Policy Type Policy Number Effective Date Expiration Date Ada [employer] [id number] 2018 00:00:00 Problems Condition Condition Condition Status [...] Active Univers ALLERGIE Class ity of [facility] [place] [facility] Family History Family Member Diagnosis Comments Start Date Stop Date Source Natural father No Known Problems Met [facility] Maternal aunt Cancer [facility] Maternal grandfather Hypertension [facility] Maternal grandmother Diabetes Meth [facility] Maternal grandmother Hypertension [facility] Natural mother No Known Problems Met [facility] Paternal uncle Cancer [facility] Paternal uncle Stroke [facility] Social History Social Habit Start Date Stop Date Quantity Comments Source Exposure to Not sure [facility] (event) Branch History of Cigar Smoker [facility] tobacco use Alcohol intake 2018-04-25 2018-04-[address] [facility] 00:00:00 00:00:00 non-drinker of alcohol (finding) Tobacco Comment 2016-06-11 2016-06-11 1-2 cigars/week Meth [facility] 00:00:00 00:00:00 Tobacco use and 2016-06-11 2016-06-11 Smokeless tobacco [facility] exposure 00:00:00 00:00:00 non-user Sex Assigned At [address] [facility] 00:00:00 00:00:00 Smoking Status Start Date Stop Date Source Unknown if ever smoked [facility] Occasional tobacco smoker 2016-06-11 00:00:00 [facility] Medications Ordered Filled Start Stop Current Ordering Indication Dosage Frequency Signature Comments Components Source Medication Medication Date Date Medication? Clinician (SIG) Name Name HYDROcodone 2020- No 1{tbl} 1 tablet, Univers -acetaminop 02-26 Oral, ONCE i ty of hen (NORCO) 01:30: 00:47 NOW, 1 Luis as 10-325 mg 00 :00 dose, Wed Medic al tablet 1 02/25/21 at [facility] h tablet 2029, Routine dexamethaso 2020- No [...] medication : EMERGENCY ROOM, predniSONE 2020- No [id number] 40mg Take 2 Univers 20 mg 02-26 tablets by ity of tablet 00:00: 04:59 mouth [place] 00 :00 daily for Medical 5 days. Branch methocarbam Yes [id number] 750mg Take 1 Univers oL 750 mg [...] Indication s: acute pain fluticasone 2018-08 Yes [id number] 2{spray Use 2 Univers propionate 0-01 } Sprays in ity of (FLONASE 00:00: each [place] ALLERGY 00 nostril Medical RELIEF) 50 daily. Branch mcg/actuati on nasal spray fluticasone 2018-08 Yes [id number] 2{spray Use 2 Univers propionate 0-01 } Sprays in ity of (FLONASE 00:00: each [place] ALLERGY 00 nostril Medical RELIEF) 50 daily. Branch mcg/actuati on nasal spray fluticasone 2018-08 Yes [id number] 2{spray Use 2 Univers propionate 0-01 } Sprays in ity of (FLONASE 00:00: each [place] ALLERGY 00 nostril Medical RELIEF) 50 daily. Branch mcg/actuati on nasal spray fluticasone 2018-08 Yes [id number] 2{spray Use 2 Univers propionate 0-01 } Sprays in ity of (FLONASE 00:00: each [place] ALLERGY 00 nostril Medical RELIEF) 50 daily. Branch mcg/actuati on nasal spray mupirocin 2017-08 Yes Apply to Univ ers (BACTROBAN) 2-29 affected ity of 2 % cream 00:00: area(s) 3 Luis as 00 (three) Medical times Branch daily. traMADOL 2017-08 Yes 50mg Take 1 Univers (ULTRAM) 50 2-29 tablet by ity of mg tablet 00:00: mouth [place] 00 every 6 Medical (six) Branch hours as needed for Pain (scale 4-6). mupirocin 2018- Yes Apply to [facility] ers (BACTROBAN) 2- affected ity of 2 % cream 00:00: area(s) 3 Luis as 00 (three) Medical times Branch daily. traMADOL 2017- Yes 50mg Take 1 Univers (ULTRAM) 50 2-29 tablet by ity of mg tablet 00:00: mouth [place] 00 every 6 Medical (six) Branch hours as needed for Pain (scale 4-6). mupirocin 2017- Yes Apply to [facility] ers (BACTROBAN) 2 affected ity of 2 % cream 00:00: area(s) 3 Luis as 00 (three) Medical times Branch daily. traMADOL 2017- Yes 50mg Take 1 Univers (ULTRAM) 50 2-29 tablet by ity of mg tablet 00:00: mouth [place] 00 every 6 Medical (six) Branch hours as needed for Pain (scale 4-6). mupirocin 2017- Yes Apply to [facility] ers (BACTROBAN) 2 affected ity of 2 [...] 00:00: MOUTH [facility]osp[facility] 00 EVERY DAY l meloxicam 2017-0 Yes TAKE 1 Method i (MOBIC) 15 9-[address] mg tablet 00:00: MOUTH Hospita 00 EVERY DAY l ibuprofen 2017- Yes 800mg Q6H Take 800 Met hodi (ADVIL,MOTR 8-[address] [place]) 800 MG 09:34: mouth Hospit a tablet 45 every 6 l (six) hours as needed for mild pain. cyclobenzap 2018-0 Yes 5mg Q.[id number] Take 5 mg Methodi rine 8-[id number] mouth [address] (FLEXERIL) 09:34: 3D (three) Hosp ewelina 5 mg tablet 45 times a l day as needed for muscle spasms. ibuprofen 2018-0 Yes 800mg Q6H Take 800 Met hodi (ADVIL,MOTR 8-[address] [place]) 800 MG 09:34: mouth Hospit a tablet 45 every 6 l (six) hours as needed for mild pain. cyclobenzap 2017-0 Yes 5mg Q.[id number] Take 5 mg Methodi rine 8-[id number] mouth [address] (FLEXERIL) 09:34: 3D (three) Hosp [facility]el[facility] 5 mg tablet 45 times a l day as needed for muscle spasms. Dextran Yes 1[drp] Place 1 Unive rs [...] ophthalmic 00 at Medical ointment bedtime. Branch Vital Signs Vital Name Observation Time Observation Value Comments Source Systolic blood 2021-02-26 02:16:40 123 mm[Hg] [facility] Diastolic blood 2021-02-26 02:16:40 75 mm[Hg] [facility] Heart rate 2021-02-26 02:16:40 59 /min [facility] Respiratory rate 2021-02-26 02:16:40 17 /min [facility] Oxygen saturation in 2021-02-26 02:16:40 98 /min [facility] Arterial blood by [facility] Pulse oximetry [place] Body temperature 2021-02-25 23:32:33 36.94 Reina [facility] Body height 2021-02-25 23:30:00 185.4 cm [facility] Body weight 2021-02-25 23:30:00 97.523 kg [facility] BMI 2021-02-25 23:30:00 28.37 kg/m2 [facility] Procedures Procedure Date / Time Performed Performing Clinician Sourc e URINALYSIS 2021-02-26 00:50:00 Amy Hillman [facility] XR LUMBAR SPINE 3 VW 2021-02-26 00:38:30 Amy Hillman [facility] NOTICE OF PRIVACY 2021-02-25 23:05:59 Doctor Unassigned, No Univ [facility] CONSENT/REFUSAL FOR 2021-02-25 23:05:39 Doctor Unassigned, [facility] AND Name Medical Branch TREATMENT Plan of Care Planned Activity Planned Date Details Comments Source Future Scheduled 2022-09-07 COVID-19 [facility] Test 22:44:08 (#1) [code = COVID-19 VACCINE (#1)] Future Scheduled 2022-09-07 INFLUENZA VACCINE Method [facility]3] Test 22:44:08 [code = INFLUENZA VACCINE] Future Scheduled 2022-04-29 [facility]ITIS [facility] Test 07:10:34 VACCINES (1 of 3 - 3-dose series) [code = HEPATITIS B VACCINES (1 of 3 - 3-dose series)] Future Scheduled 2022-04-29 COVID-19 [facility]ACCINE [facility] Test 07:10:34 (#1) [code = COVID-19 VACCINE (#1)] Future Scheduled 2022-04-29 INFLUENZA VACCINE Method [facility]3] Test 07:10:34 [code = INFLUENZA VACCINE] Encounters Start End Encounter Admission Attending Care Care Encounter Source Date/Time Date/Time Type Type Clinicians Facility Department ID 2021-02-25 2021-02-25 Emergency [place], [facility] [id number] Univers 19:12:00 21:20:00 Amy Bundy [id number] i ty [facility] [id number] [facility] [id number] [facility] 084 Branch 2021-02-25 2021-02-25 Emergency X [facility] ERT [id number] Univers 18:07:00 18:07:00 ity of [place] [facility] 2021-02-25 2021-02-25 Orders Doctor ROCHA [id number] Univers 00:00:00 00:00:00 Only Unassigned, DAINA [id number] ity of [place] [facility] [id number] [facility] [id number] [facility] 009 Branch 2020-07-20 2020-07-20 Telephone AJ Ordaz [id number] 00:00:00 00:00:00 Ijeoma LAMA [id number] [facility] [id number] [id number] [facility] 2020-07-20 2020-07-20 Telephone AJ Ordaz [id number] Univers 00:00:00 00:00:00 Ijeoma LAMA [id number] ity of HOSPITAL 4.2.7.2.686 Luis as [id number] [facility] 019 Branch 2020-07-17 2020-07-17 Laboratory Only, Web [facility] [id number] 10:05:15 10:20:15 Only Test Health [id number] Specialty [id number] Care - [id number] [place] [address] 2020-07-17 2020-07-17 Laboratory Only, Web Test [facility] [id number] [facility] 10:05:15 10:20:15 Only Fernando Schmitz [facility] [id number] ity of Specialty [id number] [place] - [id number] [address] Results Test Description Test Time Test Comments Results Result Comments Source Urinalysis 2021-02-26 01:23:08 Test Item Value Reference Range Interpretation Comme nts APPEARANCE (test code = Clear Clear 8257856820) COLOR (test code = 0326426264) Yellow Yellow PH (test code = 6559224626) 4.8-8.0 SP GRAVITY (test code = 1.003-1.030 0869780986) GLU U QUAL (test code = Normal Normal 2186877769) BLOOD (test code = 0628179989) 1+ Negative A KETONES (test code = 6512756222) Negative Negative PROTEIN (test code = 2887-8) Negative Negative UROBILIN (test code = 2.0 mg/dL Normal A 4925971461) BILIRUBIN (test code = Negative Negative 0067379635) NITRITE (test code = 7234985426) Negative Negative LEUK BIGG (test code = Negative Negative 2179955657) RBC/HPF (test code = 3932224708) See_Comment H [Automated message] The system which ge nerated this result transmit henna reference range: 0 - 3 HP F. The reference range was not used to interpret th is result as normal/abnormal . WBC/HPF (test code = 8939424247) <1 See_Comment [Automated message] The system which ge nerated this result transmit henna reference range: 0 - 5 HP F. The reference range was not used to interpret th is result as normal/abnormal . BACTERIA (test code = Negative Negative 7113391165) MUCOUS (test code = 2812046006) Slight Negative LPF A Lab Interpretation (test code = Abnormal 25274-5) [facility]
[2022-09-08 00:13] LABS: Absolute Lymphocytes (CBC) 1.9 K/uL (0.7-4.9); Hematocrit 37.4 % (39.6-49.0); Lymphocytes % 26.7 % (15.3-44.8); MCV 92.1 fL (80-100); MPV 8.7 fL (7.6-11.3); RBC Red Blood Cell Count 4.06 M/uL (4.33-5.43)
[2022-09-08] MEDS ORDERED: KETOROLAC 30 MG/ML INJ ONE (00:26)
[2022-09-08 00:29] LABS: Albumin 3.8 g/dL (3.4-5.0); Bilirubin Total 0.9 mg/dL (0.2-1.0); Potassium 3.6 mmol/L (3.5-5.1); Protein, Total 7.1 g/dL (6.4-8.2); Troponin High Sensitivity 15.3 pg/mL (<58.9)
--- NOTE | 2022-09-08 00:37 | EDPHYS ---
Physician Documentation [facility] Name: Alina Noyola Age: 31 yrs Sex: Male : 1990 Arrival Date: 09/07/2022 Time: 22:45 Bed 19 Private MD: ED Physician Farhat Flores HPI: 09/07 23:46 This 31 yrs old Black Male presents to ER via Unassigned with complaints of Chest Pain. rt 23:46 The patient or guardian reports chest pain that is located primarily in the substernal rt area. The pain does not radiate. Associated signs and symptoms: The patient has no apparent associated signs or symptoms. The chest pain is described as aching. Duration: The patient or guardian reports a single episode. Modifying factors: The symptoms are alleviated by nothing. the symptoms are aggravated by movement. Severity of pain: At its worst the pain was mild. Patient presents to the ED with 3 days of continuous substernal chest pain. 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 He believes that he has a strained muscle. He denies other acute complaints at this time. Pain is aching nature, nonradiating, no other aggravating alleviating factors.. Historical: - Allergies: 23:52 No Known Allergies; vc1 - Home Meds: 23:52 None [Active]; vc1 - PMHx: 23:52 ear infection; vc1 - PSHx: 23:52 None; vc1 - Immunization history:: Client reports having NOT received the Covid vaccine. - Family history:: not pertinent. - Social history:: Smoking status: Patient reports the use of cigarette tobacco products, denies chronic smoking, but will smoke occasionally. ROS: 23:46 Constitutional: Negative for fever, chills, and weight loss, Eyes: Negative for injury, rt pain, redness, and discharge, ENT: Negative for injury, pain, and discharge, Neck: Negative for injury, pain, and swelling, Respiratory: Negative for shortness of breath, cough, wheezing, and pleuritic chest pain, Abdomen/GI: Negative for abdominal pain, nausea, vomiting, diarrhea, and constipation, MS/Extremity: Negative for injury and deformity, Skin: Negative for injury, rash, and discoloration, Neuro: Negative for headache, weakness, numbness, tingling, and seizure, Psych: Negative for depression, anxiety, suicide ideation, homicidal ideation, and hallucinations. 23:46 Cardiovascular: Positive for chest pain, Negative for edema. Exam: 23:46 Constitutional: This is a well developed, well nourished patient who is awake, alert, rt and in no acute distress. Head/Face: Normocephalic, atraumatic. Eyes: Pupils equal round and reactive to light, extra-ocular motions intact. Lids and lashes normal. Conjunctiva and sclera are non-icteric and not injected. Cornea within normal limits. Periorbital areas with no swelling, redness, or edema. Neck: Trachea midline, no thyromegaly or masses palpated, and no cervical lymphadenopathy. Supple, full range of motion without nuchal rigidity, or vertebral point tenderness. No Meningismus. Chest/axilla: Normal chest wall appearance and motion. Nontender with no deformity. No lesions are appreciated. Cardiovascular: Regular rate and rhythm with a normal S1 and S2. No gallops, murmurs, or rubs. Normal PMI, no JVD. No pulse deficits. Respiratory: Lungs have equal breath sounds bilaterally, clear to auscultation and percussion. No rales, rhonchi or wheezes noted. No increased work of breathing, no retractions or nasal flaring. Abdomen/GI: Soft, non-tender, with normal bowel sounds. No distension or tympany. No guarding or rebound. No evidence of tenderness throughout. Skin: Warm, dry with normal turgor. Normal color with no rashes, no lesions, and no evidence of cellulitis. MS/ Extremity: Pulses equal, no cyanosis. Neurovascular intact. Full, normal range of motion. Neuro: Awake and alert, GCS 15, oriented to person, place, time, and situation. Cranial nerves II-XII grossly intact. Motor strength 5/5 in all extremities. Sensory grossly intact. Cerebellar exam normal. Normal gait. Psych: Awake, alert, with orientation to person, place and time. Behavior, mood, and affect are within normal limits. 23:46 ECG was reviewed by the Attending Physician. Vital Signs: 23:48 BP 140 / 83; Pulse 60; Resp 13; Temp 98.1; Pulse Ox 100% ; Weight 99.79 kg; Height 6 vc1 ft. 1 in. (185.42 cm); Pain 5/10; 09/08 00:33 BP 121 / 76; Pulse 61; Resp 17; Pulse Ox 98% ; jj7 00:58 BP 117 / 68; Pulse 58; Resp 18; Pulse Ox 98% ; Pain 0/10; jj7 09/07 23:48 Body Mass Index 29.03 (99.79 kg, 185.42 cm) vc1 MDM: 09/07 23:08 Patient medically screened. rt 09/08 00:37 Differential diagnosis: acute myocardial infarction, acute pericarditis, chest wall rt pain, pleurisy, pneumonia, pneumothorax, pulmonary embolus. HEART Score: History: Slightly Suspicious (0), ECG: Normal (0), Age: < or = 45 years (0), Risk Factors: No Risk Factors Known (0), Troponin: < or = 1 x Normal Limit (0), Total Score = 0. Data reviewed: vital signs, nurses notes, lab test result(s), EKG, radiologic studies. Independent interpretation of the following test(s) in the Emergency Department EKG: See my EKG interpretation above X-Ray: My interpretation is lungs clear. Scoring Tools PERC Rule for PE Age >/= 50 No HR >/= 100 No O2 Sat Room Air < 95% No Unilateral leg swelling No Hemoptysis No Recent surgery or trauma </= 4 wks ago requiring treatment with general anesthesia No (0 pt) Prior PE or DVT No Hormone use (Oral contraceptives, hormone replacement or estrogenic hormones use in males or female patients No. Response to treatment: the patient's symptoms have markedly improved after treatment. 09/07 23:14 Order name: CBC with Diff; Complete Time: 00:30 rt 09/07 23:14 Order name: CMP; Complete Time: 00:30 rt 09/07 23:14 Order name: Chest Single View XRAY rt 09/07 23:14 Order name: Troponin High Sensitivity; Complete Time: 00:30 rt 09/07 23:14 Order name: CPK; Complete Time: 00:30 rt 09/07 23:14 Order name: EKG; Complete Time: 23:14 rt 09/07 23:14 Order name: EKG - Nurse/Tech; Complete Time: 23:43 rt EC/10 23:46 Rate is 57 beats/min. Rhythm is regular, Sinus bradycardia with No ectopy. QRS [place] is rt Normal. MI interval is normal. QRS interval is normal. QT interval is normal. No Q waves. T waves are Normal. No ST changes noted. Clinical impression: Normal ECG. Interpreted by me. Administered Medications: 09/08 00:30 Drug: Ketorolac 30 mg Route: IM; Site: right gluteus; jj7 01:00 Follow up: Response: Pain is decreased jj7 Disposition Summary: 09/08/22 00:36 Discharge Ordered Location: Home rt Problem: new rt Symptoms: have improved rt Condition: Stable rt Diagnosis - Chest pain, unspecified rt Followup: rt - With: Private Physician - When: 2 - 3 days - Reason: Discharge Instructions: - Discharge Summary Sheet rt - Chest Wall Pain rt Forms: - Medication Reconciliation Form rt - Thank You Letter rt - Antibiotic Education rt - Prescription Opioid Use rt Signatures: Dispatcher [employer] Rose Flowers RN RN vc1 Chaparro Rodgers RN RN jj7 Farhat Flores MD MD rt
--- NOTE | 2022-09-08 00:37 | ER ---
Nurse's Notes [facility] Name: Alina Noyola Age: 31 yrs Sex: Male : 1990 Arrival Date: 09/07/2022 Time: 22:45 Bed 19 Private MD: Diagnosis: Chest pain, unspecified Presentation: 09/07 23:48 Chief complaint: Patient states: "I have head chest pain for the last 3 days.". vc1 Coronavirus screen: Vaccine status: Patient reports being unvaccinated. At this time, the client does not indicate any symptoms associated with coronavirus-19. Ebola Screen: No symptoms or risks identified at this time. Initial Sepsis Screen: Does the patient meet any 2 criteria? No. Patient's initial sepsis screen is negative. Does the patient have a suspected source of infection? No. Patient's initial sepsis screen is negative. Risk Assessment: Do you want to hurt yourself or someone else? Patient reports no desire to harm self or others. Onset of symptoms was September 04, 2022. 23:48 Method Of Arrival: Ambulatory vc1 23:48 Acuity: KEKE 3 vc1 Triage Assessment: 23:50 General: Appears in no apparent distress. uncomfortable, Behavior is calm, cooperative, vc1 appropriate for age. Pain: Complains of pain in mid-sternal area and left breast Pain does not radiate. Pain currently is 5 out of 10 on a pain scale. EENT: No deficits noted. No signs and/or symptoms were reported regarding the EENT system. Neuro: Level of Consciousness is awake, alert, obeys commands, Oriented to person, place, time, situation, Appropriate for age. Cardiovascular: Reports chest pain, Patient's skin is warm and dry. Chest pain is described as mild, quality is sharp, is located in left chest wall substernal area. Respiratory: Airway is patent Respiratory effort is even, unlabored, Respiratory pattern is regular, symmetrical. GI: No deficits noted. No signs and/or symptoms were reported involving the gastrointestinal system. : No deficits noted. No signs and/or symptoms were reported regarding the genitourinary system. Derm: No deficits noted. No signs and/or symptoms reported regarding the dermatologic system. Musculoskeletal: No deficits noted. No signs and/or symptoms reported regarding the musculoskeletal system. Historical: - Allergies: 23:52 No Known Allergies; vc1 - Home Meds: 23:52 None [Active]; vc1 - PMHx: 23:52 ear infection; vc1 - PSHx: 23:52 None; vc1 - Immunization history:: Client reports having NOT received the Covid vaccine. - Family history:: not pertinent. - Social history:: Smoking status: Patient reports the use of cigarette tobacco products, denies chronic smoking, but will smoke occasionally. Screenin:46 [facility] ED Fall Risk Assessment (Adult) History of falling in the last 3 months, jj7 including since admission No falls in past 3 months (0 pts) Confusion or Disorientation No (0 pts) Intoxicated or Sedated No (0 pts) Impaired Gait No (0 pts) Mobility Assist Device Used No (0 pt) Altered Elimination No (0 pt) Score/Fall Risk Level 0 - 2 = Low Risk. 23:52 Abuse screen: Denies threats or abuse. Nutritional screening: No deficits noted. vc1 Nutritional screening: No deficits noted. Tuberculosis screening: No symptoms or risk factors identified. Assessment: 23:46 General: Appears in no apparent distress. comfortable, Behavior is calm, cooperative, jj7 appropriate for age. Pain: Complains of pain in chest. Cardiovascular: Chest pain is described as mild. 09/08 00:36 Pain: Pain began 2-3 days ago. jj7 Vital Signs: 09/07 23:48 BP 140 / 83; Pulse 60; Resp 13; Temp 98.1; Pulse Ox 100% ; Weight 99.79 kg; Height 6 vc1 ft. 1 in. (185.42 cm); Pain 5/10; 09/08 00:33 BP 121 / 76; Pulse 61; Resp 17; Pulse Ox 98% ; jj7 00:58 BP 117 / 68; Pulse 58; Resp 18; Pulse Ox 98% ; Pain 0/10; jj7 09/07 23:48 Body Mass Index 29.03 (99.79 kg, 185.42 cm) vc1 ED Course: 09/07 22:45 Patient arrived in ED. ja2 23:06 Farhat Flores MD is Attending Physician. rt 23:38 Chaparro Rodgers RN is Primary Nurse. jj7 23:39 Chest Single View XRAY In Process Unspecified. EDMS 23:46 No provider procedures requiring assistance completed. Patient maintains SpO2 jj7 saturation greater than 95% on room air. 23:50 Triage completed. vc1 23:52 Arm band placed on right wrist. vc1 23:53 Patient has correct armband on for positive identification. Bed in low position. Call vc1 light in reach. Client placed on continuous cardiac and pulse oximetry monitoring. NIBP monitoring applied. 09/08 00:58 Patient did not have IV access during this emergency room visit. jj7 Administered Medications: 00:30 Drug: Ketorolac 30 mg Route: IM; Site: right gluteus; jj7 01:00 Follow up: Response: Pain is decreased jj7 Medication: 09/07 23:46 VIS not applicable for this client. jj7 Outcome: 09/08 00:36 Discharge ordered by . rt 00:58 Discharged to home ambulatory. jj7 00:58 Condition: improved 00:58 Discharge instructions given to patient, Instructed on discharge instructions, Demonstrated understanding of instructions. 00:59 Patient left the ED. jj7 Signatures: Dispatcher [employer] EDMS Kelly Dumont2 Rose Seo, RN RN vc1 Chaparro Rodgers RN RN jj7 Farhat Flores MD MD rt
[2022-09-08 01:31] VITALS: TEMP 98.1
[2022-09-08 01:32] VITALS: O2SAT 98
[2022-09-08 01:34] VITALS: BP 117/68
--- NOTE | 2022-09-08 14:53 | EKG ---
Test Date: 2022-09-07 Test Time: 23:41:17 Financial Sales Professional: MEASUREMENT RESULTS: Intervals: Rate: 57 IL: 198 QRSD: 116 QT: 408 QTc: 397 [place]: P: 62 IL: 198 QRS: 36 T: 53 INTERPRETIVE STATEMENTS: Sinus bradycardia Otherwise normal ECG Compared to ECG 09/04/2019 21:06:42 Sinus rhythm no longer present Right-axis deviation no longer present Electronically Signed On 09-08-22 14:51:48 HIGH PRESSURE KETTLE OPERATOR by Temo Branch
--- NOTE | 2022-09-08 20:59 | RAD REPORT ---
EXAM DESCRIPTION: XR Chest, 1 View CLINICAL HISTORY: The patient is 31 years old and is Male; CHEST PAIN TECHNIQUE: Frontal view of the chest. COMPARISON: No relevant prior studies available. FINDINGS: Lungs: Unremarkable. No consolidation. Pleural space: Unremarkable. No pneumothorax. Heart: Unremarkable. Mediastinum: Unremarkable. Bones/joints: Unremarkable. IMPRESSION: No acute findings in the chest. Electronically signed by: Luther Silvestre MD 09/07/2022 11:57 PM COLDFUSION Due to temporary technical issues with the PACS/Fluency reporting system, reports are being signed by the in house radiologists without review as a courtesy to insure prompt reporting. The interpreting radiologist is fully responsible for the content of the report.
== END 2022-09-08 00:59 | disposition home or self-care (01) ==
LOC: ER 22:42
DX: R07.9 Chest pain, unspecified (principal); F17.210 Nicotine dependence, cigarettes, uncomplicated
CPT/HCPCS: 36415; 71045; 80053; 82550; 84484; 85025; 93005

== ENCOUNTER → 2023-10-20 | Emergency (ER) | payer BC ==
[~2023-10-20] MED LIST: ONDANSETRON 4 MG (ODT) TAB ONE
[2023-10-20 11:46] LABS: SARS-CoV-2 Antigen Rapid Res Negative (Negative)
--- NOTE | 2023-10-20 12:35 | EDPHYS ---
Physician Documentation [facility] Name: Alina Noyola Age: 32 yrs Sex: Male : 1990 Arrival Date: 10/20/2023 Time: 10:33 Bed IW1 Private MD: ED Physician Vincenzo Dailey HPI: 10/20 12:32 This 32 yrs old Black Male presents to ER via Ambulatory with complaints of Flu rn Symptoms. 12:32 The patient or guardian reports cough, flu symptoms, low-grade fever, myalgias, no rn appetite. Onset: The symptoms/episode began/occurred 2 day(s) ago. Severity of symptoms: At their worst the symptoms were mild, in the emergency department the symptoms are unchanged. Modifying factors: The symptoms are alleviated by nothing, the symptoms are aggravated by nothing. The patient has not experienced similar symptoms in the past. Patient reports flulike symptoms for 2 days. Includes runny nose, sore throat, cough, nausea, decreased appetite, myalgias and malaise. No shortness of breath. No chronic lung problems. Non-smoker. Historical: - Allergies: 11:19 No Known Allergies; iw - PSHx: 11:19 Left wrist; iw - Immunization history:: Adult Immunizations up to date. - Family history:: not pertinent. - Social history:: Smoking status: Patient denies any tobacco usage or history of. - Hospitalizations: : No recent hospitalization is reported. ROS: 12:32 Constitutional: Positive for fever and chills Eyes: Negative for injury, pain, redness, rn and discharge, ENT: Positive for runny nose and sore throat Cardiovascular: Negative for chest pain, palpitations, and edema, Respiratory: Negative for shortness of breath, wheezing, and pleuritic chest pain, Abdomen/GI: Negative for abdominal pain, nausea, vomiting, diarrhea, and constipation, MS/Extremity: Negative for injury and deformity, Neuro: Negative for numbness, tingling, and seizure, Exam: 12:32 Constitutional: This is a well developed, well nourished patient who is awake, alert, rn and in no acute distress. Head/Face: Normocephalic, atraumatic. ENT: Mild pharyngeal erythema. No stridor. Moist mucous membranes Neck: Trachea midline, no masses palpated, and no cervical lymphadenopathy. Supple, full range of motion without nuchal rigidity, or vertebral point tenderness. No Meningismus. Cardiovascular: Regular rate and rhythm. No pulse deficits. Respiratory: No increased work of breathing, no retractions or nasal flaring. Abdomen/GI: Soft, non-tender Neuro: Awake and alert, GCS 15 Vital Signs: 11:13 BP 116 / 72; Pulse 95; Resp 19; Temp 99.3; Pulse Ox 98% ; bc6 MDM: 10:41 Patient medically screened. rn 12:34 Differential Diagnosis: Influenza Upper Respiratory Infection. Data reviewed: vital rn signs, nurses notes, lab test result(s), and as a result, I will discharge patient. Counseling: I had a detailed discussion with the patient and/or guardian regarding the historical points, exam findings, and any diagnostic results supporting the discharge/admit diagnosis, lab results, the need for outpatient follow up, to return to the emergency department if symptoms worsen or persist or if there are any questions or concerns that arise at home. Special discussion: I discussed with the patient/guardian in detail that at this point there is no indication for admission to the hospital. It is understood, however, that if the symptoms persist or worsen the patient needs to return immediately for re-evaluation. 10/20 10:46 Order name: Flu; Complete Time: 12:31 rn 10/20 10:46 Order name: SARS RAPID; Complete Time: 12:31 rn 10/20 10:46 Order name: Strep rn 10/20 11:50 Order name: Throat Culture EDMS Administered Medications: 11:13 Drug: Ondansetron PO 4 mg PO once Route: PO; iw 12:38 Follow up: Response: No adverse reaction as6 Disposition Summary: 10/20/23 12:35 Discharge Ordered Notes: Location: Home rn Problem: new rn Symptoms: have improved rn Condition: Stable rn Diagnosis - Influenza due to identified novel influenza A virus with other respiratory rn manifestations Followup: rn - With: Private Physician - When: As needed - Reason: Recheck today's complaints, Re-evaluation by your physician Discharge Instructions: - Discharge Summary Sheet rn - Influenza, Adult rn Forms: - Medication Reconciliation Form rn - Thank You Letter rn - Antibiotic turner and former automatic - Prescription Opioid Use rn - Patient Portal Instructions rn - Leadership Thank You Letter rn Prescriptions: - ondansetron 4 mg Oral Tablet,disintegrating - take 1 tablet ORAL route every 8 hours As needed; 10 tablet; Refills: 0, rn Product Selection Permitted - Tamiflu 75 mg Oral capsule - take 1 tablet ORAL route every 12 hours for 5 days; 10 tablet; Refills: 0, rn Product Selection Permitted Signatures: Dispatcher [employer] Riddhi Williamson, RN Vincenzo Howell MD MD rn Slawson, Ashby, RN RN as6
--- NOTE | 2023-10-20 12:35 | ER ---
Nurse's Notes [facility] Name: Alina Noyola Age: 32 yrs Sex: Male : 1990 Arrival Date: 10/20/2023 Time: 10:33 Bed IW1 Private MD: Diagnosis: Influenza due to identified novel influenza A virus with other respiratory manifestations Presentation: 10/20 11:19 Chief complaint: Patient states: flu symptoms. Coronavirus screen: Client presents with iw at least one sign or symptom that may indicate coronavirus-19. Ebola Screen: Patient negative for fever greater than or equal to 101.5 degrees Fahrenheit, and additional compatible Ebola Virus Disease symptoms Patient denies exposure to infectious person. Patient denies travel to an Ebola-affected area in the 21 days before illness onset. No symptoms or risks identified at this time. Initial Sepsis Screen: Does the patient meet any 2 criteria? No. Patient's initial sepsis screen is negative. Does the patient have a suspected source of infection? No. Patient's initial sepsis screen is negative. Risk Assessment: Do you want to hurt yourself or someone else? Patient reports no desire to harm self or others. Onset of symptoms was October 20, 2023. 11:19 Method Of Arrival: Ambulatory iw 11:19 Acuity: KEKE 4 iw Historical: - Allergies: 11:19 No Known Allergies; iw - PSHx: 11:19 Left wrist; iw - Immunization history:: Adult Immunizations up to date. - Family history:: not pertinent. - Social history:: Smoking status: Patient denies any tobacco usage or history of. - Hospitalizations: : No recent hospitalization is reported. Screenin:42 [facility] ED Fall Risk Assessment (Adult) Score/Fall Risk Level 0 - 2 = Low Risk. Abuse as6 screen: Denies threats or abuse. Denies injuries from another. Nutritional screening: No deficits noted. Tuberculosis screening: No symptoms or risk factors identified. Assessment: 12:43 General: Appears in no apparent distress. Behavior is calm, cooperative. General: as6 Reports feeling ill for fatigue for. Pain: Complains of pain in generalized Quality of pain is described as aching. Neuro: Reports headache. Respiratory: Respiratory effort is even, unlabored, Respiratory pattern is regular, symmetrical. GI: Reports nausea. Vital Signs: 11:13 BP 116 / 72; Pulse 95; Resp 19; Temp 99.3; Pulse Ox 98% ; bc6 ED Course: 10:37 Patient arrived in ED. mg5 10:41 Vincenzo Dailey MD is Attending Physician. rn 11:13 Riddhi Barrett RN is Primary Nurse. iw 11:13 Strep Sent. bc6 11:13 SARS RAPID Sent. bc6 11:13 Flu Sent. bc6 11:19 Triage completed. iw 12:42 No provider procedures requiring assistance completed. Patient did not have IV access as6 during this emergency room visit. 12:42 Arm band placed on. as6 12:42 Bed in low position. Call light in reach. Provided Education on: follow up, rx teaching.as6 Administered Medications: 11:13 Drug: Ondansetron PO 4 mg PO once Route: PO; iw 12:38 Follow up: Response: No adverse reaction as6 Medication: 12:42 VIS not applicable for this client. as6 Outcome: 12:35 Discharge ordered by MD. rn 12:42 Discharged to home ambulatory, as6 12:42 Condition: stable 12:42 Discharge instructions given to patient, Instructed on discharge instructions, follow up and referral plans. medication usage, Demonstrated understanding of instructions, follow-up care, medications, Prescriptions given X 2, 12:44 Patient left the ED. as6 Signatures: Riddhi Barrett, EDWARD RN Vincenzo Dailey MD MD rn Slawson, Ashby, RN RN as6 Jennifer Thompson 6 Jannet Torres mg5
[2023-10-20 13:05] VITALS: BP 116/72; TEMP 99.3; O2SAT 98
== END ==
LOC: ER 10:33
DX: J10.1 Influenza due to other identified influenza virus with other respiratory manifestations (principal); Z11.52 Encounter for screening for COVID-19
CPT/HCPCS: 87070; 36415; 87081; 87804 ×2; 99283; 87811; Q0162

== ENCOUNTER 2024-11-26 22:58 | Emergency (ER) | payer BC ==
--- NOTE | 2024-11-27 00:33 | EDPHYS ---
Physician Documentation [facility] Name: Alina Noyola Age: 34 yrs Sex: Male : 1990 Arrival Date: 11/26/2024 Time: 22:58 Bed IW1 Private MD: ED Physician Ramon Guardado HPI: 11/26 23:35 This 34 yrs old Black Male presents to ER via Ambulatory with complaints of Sore Throat.cp 23:35 The patient presents with sore throat. The patient describes throat pain as cp intermittent. Onset: The symptoms/episode began/occurred for past couple months with pain returning about 1 week ago and now persistent. Severity of symptoms: in the emergency department the symptoms are unchanged, despite home interventions. Associated signs and symptoms: Pertinent negatives cough, dysphagia, earache, fever, flu-like symptoms. Historical: - Allergies: 23:23 No Known Allergies; jb4 - PMHx: 23:23 None; jb4 - PSHx: 23:23 Left wrist; jb4 - Immunization history:: Adult Immunizations not up to date. - Infectious Disease History:: Denies. - Social history:: Smoking status: Patient/guardian denies using tobacco, Stopped _ months ago 3. ROS: 23:40 Constitutional: Negative for body aches, chills, fever, poor PO intake, cp 23:40 Eyes: Negative for injury, pain, redness, and discharge, cp 23:40 ENT: Positive for sore throat, Negative for drainage from ear(s), ear pain, sinus congestion, sinus pain, difficulty swallowing, difficulty handling secretions, 23:40 Cardiovascular: Negative for chest pain, 23:40 Respiratory: Negative for cough, shortness of breath, wheezing, 23:40 Abdomen/GI: Negative for abdominal pain, nausea, vomiting, and diarrhea, 23:40 Neuro: Negative for altered mental status, dizziness, headache, weakness, 23:40 All other systems are negative, Exam: 23:45 Constitutional: The patient appears in no acute distress, alert, awake, non-toxic, well cp developed, well nourished, 23:45 Head/Face: Normocephalic, atraumatic. cp 23:45 Eyes: Periorbital structures: appear normal, Conjunctiva: normal, no exudate, no injection, Sclera: no appreciated abnormality, Lids and lashes: appear normal, bilaterally, 23:45 ENT: External ear(s): are unremarkable, Nose: is normal, Mouth: Lips: moist, Oral mucosa: pink and intact, moist, Gums: normal with healthy appearance, Tongue: is normal, Posterior pharynx: Airway: no evidence of obstruction, patent, Tonsils: mild erythema, mild enlargement with left greater than right, no exudates, Uvula: midline, Voice: is normal, 23:45 Neck: ROM/movement: Meningeal signs: are not present, nuchal rigidity, is not appreciated, 23:45 Chest/axilla: Inspection: normal, 23:45 Cardiovascular: Rate: normal, 23:45 Respiratory: the patient does not display signs of respiratory distress, Respirations: normal, no use of accessory muscles, no retractions, labored breathing, is not present, Breath sounds: are clear throughout, no decreased breath sounds, no stridor, no wheezing, 23:45 Abdomen/GI: Exam negative for discomfort, distension, guarding, Inspection: abdomen appears normal, Vital Signs: 23:19 BP 122 / 75; Pulse 63; Resp 14; Temp 97.8(TE); Pulse Ox 98% on R/A; Weight 106.59 kg jb4 (R); Height 6 ft. 1 in. (R); 23:19 Body Mass Index 31.00 (106.59 kg, 185.42 cm) jb4 MDM: 23:16 Medical Screening Exam initiated cp 04 00:00 Differential diagnosis: epiglottitis, bryson-greco virus, group A strep tonsillitis, cp influenza, heri's angina, mononucleosis, peritonsillar abscess pharyngitis, retropharyngeal abcess. 00:32 Data reviewed: vital signs, nurses notes, lab test result(s), and as a result, I will cp discharge patient. 00:32 Counseling: I had a detailed discussion with the patient and/or guardian regarding the cp historical points, exam findings, and any diagnostic results supporting the discharge/admit diagnosis, lab results, to return to the emergency department if symptoms worsen or persist or if there are any questions or concerns that arise at home. 11/26 23:34 Order name: Group A Streptococcus Rapid 11/27 00:34 Order name: Throat Culture EDMS Administered Medications: No medications were administered Disposition: 20:48 Co-signature as Attending Physician, Ramon Guardado MD I agree with the assessment sp4 and plan of care. I reviewed the patient's care provided by the Advanced Practice Provider and agree with the diagnosis and treatment plan. Disposition Summary: 11/27/24 00:32 Discharge Ordered Notes: Location: Home cp Problem: new cp Symptoms: have improved cp Condition: Stable cp Diagnosis - Acute pharyngitis, unspecified cp Followup: cp - With: Natalia Jacinto MD - When: 1 week - Reason: pain continues Discharge Instructions: - Discharge Summary Sheet cp - Pharyngitis cp - Sore Throat cp Forms: - Medication Reconciliation Form cp - Antibiotic Education cp - Prescription Opioid Use cp - Patient Portal Instructions cp - Leadership Thank You Letter cp Prescriptions: - Amoxicillin 875 mg Oral Tablet - take 1 tablet ORAL route every 12 hours for 10 days; 20 tablet; Refills: 0, cp Product Selection Permitted Signatures: Dispatcher [employer] EDMS Young Antony PA PA cp Braydon Stauffer RN RN jb4 Ramon Guardado MD MD sp4
--- NOTE | 2024-11-27 00:33 | ER ---
Nurse's Notes [facility] Name: Alina Noyola Age: 34 yrs Sex: Male : 1990 Arrival Date: 11/26/2024 Time: 22:58 Bed IW1 Private MD: Diagnosis: Acute pharyngitis, unspecified Presentation: 11/26 23:19 Chief complaint: Patient states: I am having left sided throat pain on forceful jb4 exhales, like with coughing, yawning, or sneezing. This all started a couple months ago and has gradually gotten worse. Coronavirus screen: At this time, the client does not indicate any symptoms associated with coronavirus-19. Ebola Screen: No symptoms or risks identified at this time. Initial Sepsis Screen: Does the patient meet any 2 criteria? No. Patient's initial sepsis screen is negative. Does the patient have a suspected source of infection? No. Patient's initial sepsis screen is negative. Risk Assessment: Do you want to hurt yourself or someone else? Patient reports no desire to harm self or others. Onset of symptoms was November 26, 2024. Transition of care: patient was not received from another setting of care. 23:19 Method Of Arrival: Ambulatory jb4 23:19 Acuity: KEKE 4 jb4 Triage Assessment: 23:23 General: Appears in no apparent distress. comfortable, Behavior is calm, cooperative, jb4 appropriate for age. Pain: Complains of pain in left anterior aspect of neck Pain does not radiate. Pain currently is 2 out of 10 on a pain scale. EENT: Throat is clear is pink. Neuro: Level of Consciousness is awake, alert, obeys commands, Oriented to person, place, time, situation. Cardiovascular: Patient's skin is warm and dry. Respiratory: Airway is patent Respiratory effort is even, unlabored, Respiratory pattern is regular, symmetrical. Derm: Skin is intact, Skin is dry, Skin is normal, Skin temperature is warm. Musculoskeletal: Circulation, motion, and sensation intact. Range of motion: intact in all extremities. Historical: - Allergies: 23:23 No Known Allergies; jb4 - PMHx: 23:23 None; jb4 - PSHx: 23:23 Left wrist; jb4 - Immunization history:: Adult Immunizations not up to date. - Infectious Disease History:: Denies. - Social history:: Smoking status: Patient/guardian denies using tobacco, Stopped _ months ago 3. Screenin:26 [facility] ED Fall Risk Assessment (Adult) History of falling in the last 3 months, jb4 including since admission No falls in past 3 months (0 pts) Confusion or Disorientation No (0 pts) Intoxicated or Sedated No (0 pts) Impaired Gait No (0 pts) Mobility Assist Device Used No (0 pt) Altered Elimination No (0 pt) Score/Fall Risk Level 0 - 2 = Low Risk Oriented to surroundings, Maintained a safe environment. Abuse screen: Denies threats or abuse. Nutritional screening: No deficits noted. Tuberculosis screening: No symptoms or risk factors identified. Assessment: 11/27 01:09 Reassessment: Patient and/or family updated on plan of care and expected duration. Pain ha1 level reassessed. Patient is alert, oriented x 3, equal unlabored respirations, skin warm/dry/pink. 01:09 Respiratory: Airway is patent Respiratory effort is even, unlabored, Respiratory ha1 pattern is regular, symmetrical, Breath sounds are clear bilaterally. 01:09 General: Appears comfortable, Behavior is calm, cooperative, reports sore throat for ha1 the past four month . Neuro: Level of Consciousness is awake, alert, obeys commands. Cardiovascular: Patient's skin is warm and dry. Vital Signs: 11/26 23:19 BP 122 / 75; Pulse 63; Resp 14; Temp 97.8(TE); Pulse Ox 98% on R/A; Weight 106.59 kg jb4 (R); Height 6 ft. 1 in. (R); 23:19 Body Mass Index 31.00 (106.59 kg, 185.42 cm) jb4 ED Course: 23:14 Patient arrived in ED. ha1 23:16 Young Antony PA is PHCP. cp 23:16 Ramon Guardado MD is Attending Physician. cp 23:23 Triage completed. jb4 23:23 Arm band placed on right wrist. jb4 23:26 Patient has correct armband on for positive identification. Provided Education on: plan jb4 of care. 23:26 No provider procedures requiring assistance completed. jb4 11/27 00:32 Natalia Jacinto MD is Referral Physician. cp 01:10 Patient did not have IV access during this emergency room visit. ha1 Administered Medications: No medications were administered Medication: 11/26 23:26 VIS not applicable for this client. jb4 Outcome: 11/27 00:32 Discharge ordered by . peter 01:10 Discharged to home ambulatory, with family, ha1 01:10 Condition: stable 01:10 Discharge instructions given to patient, Instructed on discharge instructions, follow up and referral plans. medication usage, Demonstrated understanding of instructions, follow-up care, medications, Prescriptions given X 1, 01:11 Patient left the ED. ha1 Signatures: Young Antony PA PA cp Bryson, James, RN RN jb4 Graciela Guererro RN RN ha1
[2024-11-27 01:22] VITALS: BP 122/75; TEMP 97.8; O2SAT 98
== END 2024-11-27 01:11 | disposition home or self-care (01) ==
LOC: ER 22:58
DX: J02.9 Acute pharyngitis, unspecified (principal); Z11.52 Encounter for screening for COVID-19
CPT/HCPCS: 36415; 87070; 99283